=== PATIENT | male | born 1940 | race Two or more races ===

== ENCOUNTER 2017-08-24 23:45 | Inpatient (IN) | payer OTHER ==
[~2017-08-24] VITALS: Ht 157.5 cm; Wt 65.8 kg
[2017-08-25] MEDS ORDERED: Sodium Chloride 500ML 500 ML IV ONE (00:06)
[2017-08-25 00:43] LABS: HEMATOCRIT 34.4 % (42.0-52.0); HEMOGLOBIN 11.5 G/DL (14.2-18.0); MEAN CORPUSCULAR VOLUME 85 FL (80-99); PLATELET COUNT 84 K/UL (150-450); RED BLOOD COUNT 4.05 M/UL (4.70-6.10); RED CELL DISTRIBUTION WIDTH 12.3 % (11.6-14.8); WHITE BLOOD COUNT 11.5 K/UL (4.8-10.8)
--- NOTE | 2017-08-25 00:48 | Emergency Room Report ---
History of Present Illness General Chief Complaint: Abdominal Pain Source: Patient Present Illness HPI Patient presents with complaints of diffuse abdominal pain started approximately 8 o'clock this morning Patient had nausea and vomiting Denies any diarrhea Denies any chest pain or shortness of breath denies any abdominal surgeries Denies any fevers or chills Denies any dysuria or frequency Pain is a waxing and weaning Denies any change with position Allergies: Coded Allergies: No Known Allergies (Unverified , 08/24/17) Patient History Past Medical History: see triage record Pertinent Family History: none Reviewed Nursing Documentation: PMH: Agreed; PSxH: Agreed Nursing Documentation-PMH Past Medical History: No History, Except For Hx Cardiac Problems: Yes Hx Hypertension: Yes Hx Diabetes: Yes Review of Systems All Other Systems: negative except mentioned in HPI Physical Exam Vital Signs Date Time Temp Pulse Resp B/P (MAP) Pulse Ox O2 Delivery O2 Flow Rate FiO2 08/24/17 23:47 97.6 98 16 165/83 95 Room Air 97.5 Sp02 EP Interpretation: reviewed, normal General Appearance: well appearing, no apparent distress Head: normocephalic, atraumatic Eyes: bilateral eye PERRL, bilateral eye EOMI ENT: hearing grossly normal, normal pharynx, TMs + canals normal, uvula midline Neck: full range of motion, supple, no meningismus, no bony tend Respiratory: lungs clear, normal breath sounds, no rhonchi, no respiratory distress, no retraction, no accessory muscle use Cardiovascular #1: normal peripheral pulses, regular rate, rhythm, no edema, no gallop, no JVD, no murmur Gastrointestinal: normal bowel sounds, non tender - On palpation however subjectively diffusely uncomfortable, soft, no mass, no organomegaly, non- distended, no guarding, no hernia, no pulsatile mass, no rebound Genitourinary: no CVA tenderness Musculoskeletal: normal inspection Neurologic: oriented x3, responsive, client service supervisor III-XII nml as tested, motor strength/ tone normal, sensory intact Psychiatric: mood/affect normal Skin: normal color, no rash, warm/dry, palpation normal Lymphatic: normal inspection, no adenopathy Medical Decision Making Diagnostic Impression: Primary Impression: Diverticulitis ER Course With the history exam and presentation, multiple differentials considered, including but not limited to appendicitis, gastritis, cholecystitis, diverticulitis Patient's blood work reveals mildly elevated white blood cell count CT exam reveals evidence of diverticulitis Patient was provided further broad-spectrum antibiotics and requires inpatient care in serious condition Labs Test 08/25/17 00:20 White Blood Count 11.5 K/UL (4.8-10.8) Red Blood Count 4.05 M/UL (4.70-6.10) Hemoglobin 11.5 G/DL (14.2-18.0) Hematocrit 34.4 % (42.0-52.0) Mean Corpuscular Volume 85 FL (80-99) Mean Corpuscular Hemoglobin 28.5 PG (27.0-31.0) Mean Corpuscular Hemoglobin Concent 33.5 G/DL (32.0-36.0) Red Cell Distribution Width 12.3 % (11.6-14.8) Platelet Count 84 K/UL (150-450) Mean Platelet Volume 12.5 FL (6.5-10.1) Neutrophils (%) (Auto) % (45.0-75.0) Lymphocytes (%) (Auto) % (20.0-45.0) Monocytes (%) (Auto) % (1.0-10.0) Eosinophils (%) (Auto) % (0.0-3.0) Basophils (%) (Auto) % (0.0-2.0) Urine Color Yellow Urine Appearance Clear Urine pH 8 (4.5-8.0) Urine Specific [place] 1.015 (1.005-1.035) Urine Protein Negative (NEGATIVE) Urine Glucose (UA) Negative (NEGATIVE) Urine Ketones Negative (NEGATIVE) Urine Occult Blood Negative (NEGATIVE) Urine Nitrite Negative (NEGATIVE) Urine Bilirubin Negative (NEGATIVE) Urine Urobilinogen Normal MG/DL (0.0-1.0) Urine Leukocyte Esterase Negative (NEGATIVE) Sodium Level 139 MMOL/L (136-145) Potassium Level 3.8 MMOL/L (3.5-5.1) Chloride Level 100 MMOL/L (98-107) Carbon Dioxide Level 27 MMOL/L (21-32) Anion Gap 12 mmol/L (5-15) Blood Urea Nitrogen 20 mg/dL (7-18) Creatinine 1.1 MG/DL (0.55-1.30) Estimat Glomerular Filtration Rate mL/min (>60) Glucose Level 195 MG/DL (74-106) Calcium Level 9.8 MG/DL (8.5-10.1) Total Bilirubin 0.4 MG/DL (0.2-1.0) Aspartate Amino Transf (AST/SGOT) 21 U/L (15-37) Alanine Aminotransferase (ALT/SGPT) 22 U/L (12-78) Alkaline Phosphatase 77 U/L (46-116) Total Creatine Kinase 60 U/L (26-308) Creatine Kinase MB 0.7 NG/ML (0.0-3.6) Creatine Kinase MB Relative Index 1.1 Troponin I 0.000 ng/mL (0.000-0.056) Total Protein 8.4 G/DL (6.4-8.2) Albumin 4.1 G/DL (3.4-5.0) Globulin 4.3 g/dL Albumin/Globulin Ratio 1.0 (1.0-2.7) Lipase 87 U/L (73-393) Rhythm Strip Diag. Results EP Interpretation: yes Rate: 88 Rhythm: NSR, no PVC's, no ectopy Chest X-Ray Diagnostic Results Chest X-Ray Diagnostic Results : Chest X-Ray Ordered: Yes # of Views/Limited/Complete: 1 View Indication: Chest Pain EP Interpretation: Yes Interpretation: no consolidation, no effusion, no pneumothorax Impression: No acute disease Electronically Signed by: Chai Mckeon DO CT/MRI/US Diagnostic Results CT/MRI/US Diagnostic Results : Impression CTAbdomen pelvis: Findings consistent with diverticulitis refer to report for full specific Last Vital Signs Date Time Temp Pulse Resp B/P (MAP) Pulse Ox O2 Delivery O2 Flow Rate FiO2 08/24/17 23:47 97.6 98 16 165/83 95 Room Air 97.5 Status: improved Disposition: ADMITTED INPATIENT Condition: Serious Scripts Unable to Obtain Active Prescriptions or Reported Meds Referrals: [facility],REFERRING (PCP) Chai Mckeon DO August 25, 2017 00:48
[2017-08-25 00:49] LABS: APPEARANCE,URINE CLEAR; BILIRUBIN, URINE NEGATIVE (NEGATIVE); GLUCOSE, URINE (UA) NEGATIVE (NEGATIVE); KETONES,URINE NEGATIVE (NEGATIVE); LEUKOCYTE ESTERASE ,URINE NEGATIVE (NEGATIVE); NITRITE,URINE NEGATIVE (NEGATIVE); PH,URINE 8 (4.5-8.0); PROTEIN,URINE NEGATIVE (NEGATIVE); UROBILINOGEN,URINE NORMAL MG/DL (0.0-1.0)
[2017-08-25 00:50] LABS: COLOR,URINE YELLOW
[2017-08-25 00:55] LABS: ANION GAP 12 mmol/L (5-15); BLOOD UREA NITROGEN 20 mg/dL (7-18); CALCIUM 9.8 MG/DL (8.5-10.1); CARBON DIOXIDE 27 MMOL/L (21-32); CHLORIDE 100 MMOL/L (98-107); CREATININE 1.1 MG/DL (0.55-1.30); POTASSIUM 3.8 MMOL/L (3.5-5.1); SODIUM 139 MMOL/L (136-145)
[2017-08-25 01:08] VITALS: BP 148/87
[2017-08-25 01:17] LABS: ALANINE AMINOTRANSFERASE 22 U/L (12-78); ALBUMIN 4.1 G/DL (3.4-5.0); ALKALINE PHOSPHATASE 77 U/L (46-116); ASPARTATE AMINO TRANSFERASE 21 U/L (15-37); BILIRUBIN,TOTAL 0.4 MG/DL (0.2-1.0); CKMB 0.7 NG/ML (0.0-3.6); CREATINE KINASE 60 U/L (26-308)
[2017-08-25] MEDS ORDERED: Morphine Sulfate 4mg/ml Inj IVP ONE (01:45)
[2017-08-25 02:15] VITALS: BP 138/55
[2017-08-25 05:00] VITALS: BP 130/73
[2017-08-25] MEDS ORDERED: Morphine Sulfate 4mg/ml Inj IVP PRN (05:15)
[2017-08-25] MEDS ORDERED: D5 1/2NS 1,000 ML IV SCH (05:15)
[2017-08-25] MEDS ORDERED: Promethazine HCl 12.5 MG in NS 55 ML IV PRN (07:15)
[2017-08-25 08:32] VITALS: BP 107/67
--- NOTE | 2017-08-25 08:48 | Diagnostic Imaging Report ---
Indication: Abdominal pain Technique: Continuous helical transaxial imaging of the abdomen and pelvis was obtained from the lung bases to the pubic symphysis. No intravenous contrast was administered. Coronal 2-D reformats were also obtained. Automatic Exposure Control was utilized. Total Dose length Product (DLP): 740.[address] Dose Index Volume (CTDIvol): 14.12 mGy Comparison: none Findings: There is mild basilar atelectasis. Small hiatal hernia noted. Pacemaker is present. Gallstones are noted. Diverticula demonstrated throughout the colon. The appendix is normal. There is thickening of the wall the urinary bladder. In the lower part of the descending: There is a small amount of soft tissue stranding involving the pericolonic fat. Findings likely due to acute diverticulitis. Correlate clinically. There is no abscess. This arterial calcifications are present. There is a suggestion of a small central left ovarian cyst. Compression fracture deformity of the L4 vertebra noted. Anterolisthesis of L5 on S1 demonstrated. 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 IMPRESSION: Acute diverticulitis suspected involving the distal descending colon. No abscess. Cholelithiasis. Normal appendix Thickened bladder wall. Suspect cystitis. Correlate clinically. L5 spondylolysis. Spondylolisthesis grade 1 L5 on S1. Other incidental findings as above. [facility] has communicated the preliminary results to the Emergency Department. Their findings are largely concordant with this report. The CT scanner at [facility] is accredited by the [employer] and the scans are performed using dose optimization techniques as appropriate to a performed exam including Automatic Exposure control.
[2017-08-25] MEDS ORDERED: Promethazine HCl 25 MG in NS 55 ML IV PRN (09:00)
[2017-08-25] MEDS ORDERED: Nitroglycerin Subl 0.4mg tab SL PRN (09:00)
[2017-08-25] MEDS ORDERED: Metoclopramide 10mg/2ml Inj IVP PRN (09:00)
[2017-08-25] MEDS ORDERED: LORazepam Inj 2mg/ml 1ml IV PRN (09:00)
[2017-08-25] MEDS ORDERED: Mylanta II UD 30ml ORAL PRN (09:00)
[2017-08-25] MEDS ORDERED: Heparin 5000 units/ml inj SUBQ SCH (09:00)
--- NOTE | 2017-08-25 09:12 | GI Initial Consult Note ---
History of Present Illness General Date patient seen: August 25, 2017 Time patient seen: 11:00 Reason for Hospitalization: Abdominal Pain Referring physician: OSMIN JAMES Reason for Consultation: DIVERTICULITIS Present Illness HPI Patient presents with complaints of diffuse abdominal pain started approximately 8 o'clock this morning Patient had nausea and vomiting Denies any diarrhea Denies any chest pain or shortness of breath denies any abdominal surgeries Denies any fevers or chills Denies any dysuria or frequency Pain is a waxing and weaning Denies any change with position GI consulted for diverticulitis as seen on recent CT. Pt seen, awake A&Ox4 NAD denies any abdominal pain at this time. U/S tech by beside, preliminary report of cholelithiasis. Patient presents today with mild leukocytosis and anemia. Denies any unintentional weight loss or changes in dietary habits. Denies any N/V/D at this time. Unknown history of endoscopy / colonoscopy. Home Meds Unable to Obtain Active Prescriptions or Reported Meds Med list reviewed/reconciled: Yes Allergies: Coded Allergies: No Known Allergies (Unverified , 08/24/17) Patient History History Provided By: Patient, Medical Record PMH Narrative Past Medical History: see triage record Pertinent Family History: none Reviewed Nursing Documentation: PMH: Agreed; PSxH: Agreed Nursing Documentation-PMH Past Medical History: No History, Except For Hx Cardiac Problems: Yes Hx Hypertension: Yes Hx Diabetes: Yes Social History: Denies: smoking, alcohol use, drug use, other Review of Systems All Other Systems: negative except mentioned in HPI Physical Exam Vital Signs Date Time Temp Pulse Resp B/P (MAP) Pulse Ox O2 Delivery O2 Flow Rate FiO2 08/24/17 23:47 97.6 98 16 165/83 95 Room Air 97.5 Sp02 EP Interpretation: reviewed, normal Labs Laboratory Tests Test 08/25/17 00:20 White Blood Count 11.5 K/UL (4.8-10.8) H Red Blood Count 4.05 M/UL (4.70-6.10) L Hemoglobin 11.5 G/DL (14.2-18.0) L Hematocrit 34.4 % (42.0-52.0) L Mean Corpuscular Volume 85 FL (80-99) Mean Corpuscular Hemoglobin 28.5 PG (27.0-31.0) Mean Corpuscular Hemoglobin Concent 33.5 G/DL (32.0-36.0) Red Cell Distribution Width 12.3 % (11.6-14.8) Platelet Count 84 K/UL (150-450) L Mean Platelet Volume 12.5 FL (6.5-10.1) H Neutrophils (%) (Auto) % (45.0-75.0) Lymphocytes (%) (Auto) % (20.0-45.0) Monocytes (%) (Auto) % (1.0-10.0) Eosinophils (%) (Auto) % (0.0-3.0) Basophils (%) (Auto) % (0.0-2.0) Urine Color Yellow Urine Appearance Clear Urine pH 8 (4.5-8.0) Urine Specific [place] 1.015 (1.005-1.035) Urine Protein Negative (NEGATIVE) Urine Glucose (UA) Negative (NEGATIVE) Urine Ketones Negative (NEGATIVE) Urine Occult Blood Negative (NEGATIVE) Urine Nitrite Negative (NEGATIVE) Urine Bilirubin Negative (NEGATIVE) Urine Urobilinogen Normal MG/DL (0.0-1.0) Urine Leukocyte Esterase Negative (NEGATIVE) Sodium Level 139 MMOL/L (136-145) Potassium Level 3.8 MMOL/L (3.5-5.1) Chloride Level 100 MMOL/L (98-107) Carbon Dioxide Level 27 MMOL/L (21-32) Anion Gap 12 mmol/L (5-15) Blood Urea Nitrogen 20 mg/dL (7-18) H Creatinine 1.1 MG/DL (0.55-1.30) Estimat Glomerular Filtration Rate mL/min (>60) Glucose Level 195 MG/DL (74-106) H Calcium Level 9.8 MG/DL (8.5-10.1) Total Bilirubin 0.4 MG/DL (0.2-1.0) Aspartate Amino Transf (AST/SGOT) 21 U/L (15-37) Alanine Aminotransferase (ALT/SGPT) 22 U/L (12-78) Alkaline Phosphatase 77 U/L (46-116) Total Creatine Kinase 60 U/L (26-308) Creatine Kinase MB 0.7 NG/ML (0.0-3.6) Creatine Kinase MB Relative Index 1.1 Troponin I 0.000 ng/mL (0.000-0.056) Total Protein 8.4 G/DL (6.4-8.2) H Albumin 4.1 G/DL (3.4-5.0) Globulin 4.3 g/dL Albumin/Globulin Ratio 1.0 (1.0-2.7) Lipase 87 U/L (73-393) General Appearance: well appearing, no apparent distress, alert Head: normocephalic EENT: PERRL/EOMI, normal ENT inspection Neck: supple Respiratory: normal breath sounds, no respiratory distress Cardiovascular: normal rate Gastrointestinal: normal inspection, non tender, soft, normal bowel sounds, non -distended Rectal: deferred Genitourinary: deferred Musculoskeletal: normal inspection, back normal Neurologic: normal inspection, alert, oriented x3, responsive Psychiatric: normal inspection, judgement/insight normal, memory normal Skin: normal inspection, normal color, no rash, warm/dry, palpation normal, well hydrated Lymphatic: normal inspection, no adenopathy Current Medications Current Medications Medications (Trade) Dose Ordered Sig/Parth Route PRN Reason Start Time Stop Time Status Last Admin Dose Admin Acetaminophen (Tylenol) 650 mg Q4H PRN ORAL fever 08/25/17 09:00 09/24/17 08:59 Al Hydroxide/Mg Hydroxide (Mylanta II) 30 ml Q6H PRN ORAL dyspepsia 08/25/17 09:00 09/24/17 08:59 Dextrose (Dextrose 50%) STAT PRN IV Hypoglycemia 08/25/17 07:15 09/24/17 07:14 Dextrose (Dextrose 50%) STAT PRN IV Hypoglycemia 08/25/17 08:45 09/24/17 08:44 Dextrose/Sodium Chloride 1,000 ml @ 75 mls/hr [id number] IV 08/25/17 09:00 09/24/17 08:59 Diphenhydramine HCl (Benadryl) 25 mg Q6H PRN ORAL Itching/Pruritis 08/25/17 09:00 09/24/17 08:59 Heparin Sodium (Porcine) (Heparin 5000 units/ml) 5,000 units EVERY 12 HOURS SUBQ 08/25/17 09:00 09/24/17 08:59 UNV Lorazepam (Ativan 2mg/ml 1ml) 1 mg Q4H PRN IV agitation 08/25/17 09:00 09/01/17 08:59 Metoclopramide HCl (Reglan) 10 mg Q6H PRN IVP servere nausea 08/25/17 09:00 09/24/17 08:59 Morphine Sulfate (Morphine Sulfate) 4 mg Q4H PRN IVP For Pain 08/25/17 05:15 09/01/17 05:14 08/25/17 06:34 Nitroglycerin (Ntg) 0.4 mg Q5M X 3 DOSES PRN SL Prn Chest Pain 08/25/17 09:00 09/24/17 08:59 Ondansetron HCl (Zofran) 4 mg Q6H PRN IVP Nausea & Vomiting 08/25/17 09:00 09/24/17 08:59 Pantoprazole (Protonix) 40 mg DAILY IV 08/25/17 09:00 09/24/17 08:59 Polyethylene Glycol (Miralax) 17 gm HSPRN PRN ORAL Constipation 08/25/17 21:00 09/24/17 20:59 Promethazine HCl 12.5 mg/Sodium Chloride 55.5 ml @ 110 mls/hr Q6H PRN IV Refractory N/V 08/25/17 07:15 09/24/17 07:14 UNV Promethazine HCl 25 mg/Sodium Chloride 56 ml @ 110 mls/hr Q6H PRN IV Refractory N/V 08/25/17 09:00 09/24/17 08:59 Temazepam (Restoril) 15 mg HSPRN PRN ORAL Insomnia 08/25/17 21:00 09/01/17 20:59 GI: Plan Problems: (1) Diverticulitis (2) Abdominal pain Plan CT AP reviewed >> Acute diverticulitis suspected involving the distal descending colon. No abscess. CLD, advance diet as tolerated. anemia work up IV hydration IV Antibiotics, Cipro + Flagyl >> transition to PO x 10 days after dc prn transfusions ppi pain mgmt fu labs pt will require colonoscopy x 2 months after dc date. Discussed with Dr. Bell. Thank you for this patient referral, we will follow. The patient was seen and examined at bedside and all new and available data was reviewed in the patients chart. I agree with the above findings, impression and plan. (Patient seen earlier today. Signature stamp does not reflect patient encounter time.). - MD Selena [facility] [employer] August 25, 2017 09:12
[2017-08-25] MEDS: Pantoprazole Inj IV SCH (09:14)
[2017-08-25] MEDS: D5 1/2NS 1,000 ML IV SCH ×2 (09:14→21:52)
--- NOTE | 2017-08-25 10:39 | Diagnostic Imaging Report ---
Indication: Chest pain Comparison: None A single view chest radiograph was obtained. Findings: Cardiomediastinal appearance is within normal limits for age. There is a pacemaker present on the left side. Minimal calcification of the aortic arch noted. Pulmonary vascularity is appropriate. The diaphragmatic contour is smooth and costophrenic angles are sharp. No pleural effusions are identified. The bones are unremarkable. Impression: No acute findings
--- NOTE | 2017-08-25 11:38 | Diagnostic Imaging Report ---
Indication:Abdominal pain Technique: Grayscale and duplex Doppler imaging of the abdomen performed. Comparison: None Findings: The liver, demonstrated part of the pancreas, aorta and IVC, spleen appear unremarkable. Multiple gallstones are present. Sonographic Frances's is negative per technologist. There are multiple bilateral renal cysts of varying size. The largest single cyst is about 2 cm and the left kidney. There is no biliary ductal dilatation identified. Doppler evaluation of the main portal vein shows patency. There is no ascites. No hydronephrosis seen. Impression: Cholelithiasis. Bilateral renal cysts
[2017-08-25 11:56] VITALS: BP 110/65
--- NOTE | 2017-08-25 15:39 | Consultation ---
History of Present Illness General Chief Complaint: Abdominal Pain Referring physician: OSMIN JAMES Reason for Consultation: DIVERTICULITIS Present Illness Allergies: Coded Allergies: No Known Allergies (Unverified , 08/24/17) Medication History Unable to Obtain Active Prescriptions or Reported Meds Patient History Healthcare decision maker Resuscitation status Full Code Advanced Directive on File Physical Exam Last 24 Hour Vital Signs Date Time Temp Pulse Resp B/P (MAP) Pulse Ox O2 Delivery O2 Flow Rate FiO2 08/25/17 11:56 98.0 86 20 110/65 97 98.0 08/25/17 08:32 Room Air 08/25/17 08:32 98.2 90 20 107/67 97 98.2 08/25/17 05:00 98.1 65 20 130/73 95 Room Air 98.1 08/25/17 02:25 97.2 94 19 138/55 97 Room Air 207.0 08/25/17 02:24 97.2 08/25/17 02:15 94 19 138/55 97 Room Air 08/25/17 01:54 97.2 08/25/17 01:26 187/79 08/25/17 01:08 97.2 98 22 148/87 98 Room Air 97.2 08/24/17 23:47 97.6 98 16 165/83 95 Room Air 97.5 Intake and Output 08/24/17 08/25/17 19:00 07:00 Intake Total 600 ml Output Total 40 ml Balance 560 ml IV Total 600 ml Output Urine Total 40 ml # Voids 4 Laboratory Tests Test 08/25/17 00:20 White Blood Count 11.5 K/UL (4.8-10.8) H Red Blood Count 4.05 M/UL (4.70-6.10) L Hemoglobin 11.5 G/DL (14.2-18.0) L Hematocrit 34.4 % (42.0-52.0) L Mean Corpuscular Volume 85 FL (80-99) Mean Corpuscular Hemoglobin 28.5 PG (27.0-31.0) Mean Corpuscular Hemoglobin Concent 33.5 G/DL (32.0-36.0) Red Cell Distribution Width 12.3 % (11.6-14.8) Platelet Count 84 K/UL (150-450) L Mean Platelet Volume 12.5 FL (6.5-10.1) H Neutrophils (%) (Auto) % (45.0-75.0) Lymphocytes (%) (Auto) % (20.0-45.0) Monocytes (%) (Auto) % (1.0-10.0) Eosinophils (%) (Auto) % (0.0-3.0) Basophils (%) (Auto) % (0.0-2.0) Urine Color Yellow Urine Appearance Clear Urine pH 8 (4.5-8.0) Urine Specific [place] 1.015 (1.005-1.035) Urine Protein Negative (NEGATIVE) Urine Glucose (UA) Negative (NEGATIVE) Urine Ketones Negative (NEGATIVE) Urine Occult Blood Negative (NEGATIVE) Urine Nitrite Negative (NEGATIVE) Urine Bilirubin Negative (NEGATIVE) Urine Urobilinogen Normal MG/DL (0.0-1.0) Urine Leukocyte Esterase Negative (NEGATIVE) Sodium Level 139 MMOL/L (136-145) Potassium Level 3.8 MMOL/L (3.5-5.1) Chloride Level 100 MMOL/L (98-107) Carbon Dioxide Level 27 MMOL/L (21-32) Anion Gap 12 mmol/L (5-15) Blood Urea Nitrogen 20 mg/dL (7-18) H Creatinine 1.1 MG/DL (0.55-1.30) Estimat Glomerular Filtration Rate mL/min (>60) Glucose Level 195 MG/DL (74-106) H Calcium Level 9.8 MG/DL (8.5-10.1) Total Bilirubin 0.4 MG/DL (0.2-1.0) Aspartate Amino Transf (AST/SGOT) 21 U/L (15-37) Alanine Aminotransferase (ALT/SGPT) 22 U/L (12-78) Alkaline Phosphatase 77 U/L (46-116) Total Creatine Kinase 60 U/L (26-308) Creatine Kinase MB 0.7 NG/ML (0.0-3.6) Creatine Kinase MB Relative Index 1.1 Troponin I 0.000 ng/mL (0.000-0.056) Total Protein 8.4 G/DL (6.4-8.2) H Albumin 4.1 G/DL (3.4-5.0) Globulin 4.3 g/dL Albumin/Globulin Ratio 1.0 (1.0-2.7) Lipase 87 U/L (73-393) Height (Feet): 5 Height (Inches): 2.00 Weight (Pounds): 145 Medications Current Medications Medications (Trade) Dose Ordered Sig/Parth Route PRN Reason Start Time Stop Time Status Last Admin Dose Admin Acetaminophen (Tylenol) 650 mg Q4H PRN ORAL fever 08/25/17 09:00 09/24/17 08:59 Al Hydroxide/Mg Hydroxide (Mylanta II) 30 ml Q6H PRN ORAL dyspepsia 08/25/17 09:00 09/24/17 08:59 Ciprofloxacin 100 ml @ 100 mls/hr Q24HRS IV 08/25/17 10:00 09/01/17 09:59 08/25/17 11:08 Dextrose (Dextrose 50%) STAT PRN IV Hypoglycemia 08/25/17 07:15 09/24/17 07:14 Dextrose (Dextrose 50%) STAT PRN IV Hypoglycemia 08/25/17 08:45 09/24/17 08:44 Dextrose/Sodium Chloride 1,000 ml @ 75 mls/hr [id number] IV 08/25/17 09:00 09/24/17 08:59 08/25/17 09:14 Diphenhydramine HCl (Benadryl) 25 mg Q6H PRN ORAL Itching/Pruritis 08/25/17 09:00 09/24/17 08:59 Lorazepam (Ativan 2mg/ml 1ml) 1 mg Q4H PRN IV agitation 08/25/17 09:00 09/01/17 08:59 Metoclopramide HCl (Reglan) 10 mg Q6H PRN IVP servere nausea 08/25/17 09:00 09/24/17 08:59 Metronidazole 100 ml @ 100 mls/hr Q8HR IVPB 08/25/17 14:00 09/01/17 13:59 08/25/17 13:53 Morphine Sulfate (Morphine Sulfate) 4 mg Q4H PRN IVP For Pain 08/25/17 05:15 09/01/17 05:14 08/25/17 06:34 Nitroglycerin (Ntg) 0.4 mg Q5M X 3 DOSES PRN SL Prn Chest Pain 08/25/17 09:00 09/24/17 08:59 Ondansetron HCl (Zofran) 4 mg Q6H PRN IVP Nausea & Vomiting 08/25/17 09:00 09/24/17 08:59 Pantoprazole (Protonix) 40 mg DAILY IV 08/25/17 09:00 09/24/17 08:59 08/25/17 09:14 Polyethylene Glycol (Miralax) 17 gm HSPRN PRN ORAL Constipation 08/25/17 21:00 09/24/17 20:59 Promethazine HCl 25 mg/Sodium Chloride 56 ml @ 110 mls/hr Q6H PRN IV Refractory N/V 08/25/17 09:00 09/24/17 08:59 Temazepam (Restoril) 15 mg HSPRN PRN ORAL Insomnia 08/25/17 21:00 09/01/17 20:59 Westley Gottlieb MD August 25, 2017 15:39
[2017-08-25 16:02] VITALS: BP 147/76
[2017-08-25 17:09] LABS: FERRITIN 31 NG/ML (8-388); LACTATE DEHYDROGENASE 159 U/L (81-234)
[2017-08-25 17:30] LABS: % IRON SATURATION 16 % (15-50); IRON 56 ug/dL (50-175); TOTAL IRON BINDING CAPACITY 342 ug/dL (250-450)
--- NOTE | 2017-08-25 18:21 | Consultation ---
History of Present Illness General Date patient seen: August 25, 2017 Chief Complaint: Abdominal Pain Referring physician: OSMIN JAMES Reason for Consultation: DIVERTICULITIS Present Illness HPI 77 y/o M with hx of HTN, DM presents to ED on 08/25 with 1day of diffuse abd pain, nausea and vomiting. CT Abd showed diverticulitis. +Mild leukocytosis and anemia. Deneis diarrhea, CP, SOB, f/c, urinary symptoms. Afebrile, mild leukocytosis 11.5 Allergies: Coded Allergies: No Known Allergies (Unverified , 08/24/17) Medication History Unable to Obtain Active Prescriptions or Reported Meds Patient History Healthcare decision maker Resuscitation status Full Code Advanced Directive on File Patient History Narrative Pmhx: as above Shx: Denies: smoking, alcohol use, drug use, other Fhx: non contributory Review of Systems All Other Systems: negative except mentioned in HPI Physical Exam Physical Exam Narrative General Appearance: well appearing, no apparent distress, alert Head: normocephalic EENT: PERRL/EOMI, normal ENT inspection Neck: supple Respiratory: normal breath sounds, no respiratory distress Cardiovascular: normal rate Gastrointestinal: normal inspection, non tender, soft, normal bowel sounds, non -distended Neurologic: normal inspection, alert, oriented x3, responsive Skin: normal inspection, normal color, no rash, warm/dry, palpation normal, well hydrated Last 24 Hour Vital Signs Date Time Temp Pulse Resp B/P (MAP) Pulse Ox O2 Delivery O2 Flow Rate FiO2 08/25/17 16:02 97.5 77 20 147/76 97 97.5 08/25/17 11:56 98.0 86 20 110/65 97 98.0 08/25/17 08:32 Room Air 08/25/17 08:32 98.2 90 20 107/67 97 98.2 08/25/17 05:00 98.1 65 20 130/73 95 Room Air 98.1 08/25/17 02:25 97.2 94 19 138/55 97 Room Air 207.0 08/25/17 02:24 97.2 08/25/17 02:15 94 19 138/55 97 Room Air 08/25/17 01:54 97.2 08/25/17 01:26 187/79 08/25/17 01:08 97.2 98 22 148/87 98 Room Air 97.2 08/24/17 23:47 97.6 98 16 165/83 95 Room Air 97.5 Intake and Output 08/24/17 08/25/17 19:00 07:00 Intake Total 600 ml Output Total 40 ml Balance 560 ml IV Total 600 ml Output Urine Total 40 ml # Voids 4 Laboratory Tests Test 08/25/17 00:20 08/25/17 15:50 White Blood Count 11.5 K/UL (4.8-10.8) H Red Blood Count 4.05 M/UL (4.70-6.10) L Hemoglobin 11.5 G/DL (14.2-18.0) L Hematocrit 34.4 % (42.0-52.0) L Mean Corpuscular Volume 85 FL (80-99) Mean Corpuscular Hemoglobin 28.5 PG (27.0-31.0) Mean Corpuscular Hemoglobin Concent 33.5 G/DL (32.0-36.0) Red Cell Distribution Width 12.3 % (11.6-14.8) Platelet Count 84 K/UL (150-450) L Mean Platelet Volume 12.5 FL (6.5-10.1) H Neutrophils (%) (Auto) % (45.0-75.0) Lymphocytes (%) (Auto) % (20.0-45.0) Monocytes (%) (Auto) % (1.0-10.0) Eosinophils (%) (Auto) % (0.0-3.0) Basophils (%) (Auto) % (0.0-2.0) Urine Color Yellow Urine Appearance Clear Urine pH 8 (4.5-8.0) Urine Specific [place] 1.015 (1.005-1.035) Urine Protein Negative (NEGATIVE) Urine Glucose (UA) Negative (NEGATIVE) Urine Ketones Negative (NEGATIVE) Urine Occult Blood Negative (NEGATIVE) Urine Nitrite Negative (NEGATIVE) Urine Bilirubin Negative (NEGATIVE) Urine Urobilinogen Normal MG/DL (0.0-1.0) Urine Leukocyte Esterase Negative (NEGATIVE) Sodium Level 139 MMOL/L (136-145) Potassium Level 3.8 MMOL/L (3.5-5.1) Chloride Level 100 MMOL/L (98-107) Carbon Dioxide Level 27 MMOL/L (21-32) Anion Gap 12 mmol/L (5-15) Blood Urea Nitrogen 20 mg/dL (7-18) H Creatinine 1.1 MG/DL (0.55-1.30) Estimat Glomerular Filtration Rate mL/min (>60) Glucose Level 195 MG/DL (74-106) H Calcium Level 9.8 MG/DL (8.5-10.1) Total Bilirubin 0.4 MG/DL (0.2-1.0) Aspartate Amino Transf (AST/SGOT) 21 U/L (15-37) Alanine Aminotransferase (ALT/SGPT) 22 U/L (12-78) Alkaline Phosphatase 77 U/L (46-116) Total Creatine Kinase 60 U/L (26-308) Creatine Kinase MB 0.7 NG/ML (0.0-3.6) Creatine Kinase MB Relative Index 1.1 Troponin I 0.000 ng/mL (0.000-0.056) Total Protein 8.4 G/DL (6.4-8.2) H Albumin 4.1 G/DL (3.4-5.0) Globulin 4.3 g/dL Albumin/Globulin Ratio 1.0 (1.0-2.7) Lipase 87 U/L (73-393) Reticulocyte Count 0.7 % (0.0-2.0) Haptoglobin Pending Fibrinogen Pending Iron Level 56 ug/dL (50-175) Total Iron Binding Capacity 342 ug/dL (250-450) Percent Iron Saturation 16 % (15-50) Unsaturated Iron Binding 286 ug/dL (112-346) Ferritin 31 NG/ML (8-388) Lactate Dehydrogenase 159 U/L (81-234) Vitamin B12 Level 606 PG/ML (193-986) Folate 35.1 NG/ML (8.6-58.9) Homocystine Pending Hepatitis A IgM Antibody Pending Hepatitis B Surface Antigen Pending Hepatitis B Core IgM Antibody Pending Hepatitis C Antibody Pending HIV (1&2) Antibody Rapid Negative (NEGATIVE) Height (Feet): 5 Height (Inches): 2.00 Weight (Pounds): 145 Medications Current Medications Medications (Trade) Dose Ordered Sig/Parth Route PRN Reason Start Time Stop Time Status Last Admin Dose Admin Acetaminophen (Tylenol) 650 mg Q4H PRN ORAL fever 08/25/17 09:00 09/24/17 08:59 Al Hydroxide/Mg Hydroxide (Mylanta II) 30 ml Q6H PRN ORAL dyspepsia 08/25/17 09:00 09/24/17 08:59 Ciprofloxacin 100 ml @ 100 mls/hr Q24HRS IV 08/25/17 10:00 09/01/17 09:59 08/25/17 11:08 Dextrose (Dextrose 50%) STAT PRN IV Hypoglycemia 08/25/17 07:15 09/24/17 07:14 Dextrose (Dextrose 50%) STAT PRN IV Hypoglycemia 08/25/17 08:45 09/24/17 08:44 Dextrose/Sodium Chloride 1,000 ml @ 75 mls/hr [id number] IV 08/25/17 09:00 09/24/17 08:59 08/25/17 09:14 Diphenhydramine HCl (Benadryl) 25 mg Q6H PRN ORAL Itching/Pruritis 08/25/17 09:00 09/24/17 08:59 Lorazepam (Ativan 2mg/ml 1ml) 1 mg Q4H PRN IV agitation 08/25/17 09:00 09/01/17 08:59 Metoclopramide HCl (Reglan) 10 mg Q6H PRN IVP servere nausea 08/25/17 09:00 09/24/17 08:59 Metronidazole 100 ml @ 100 mls/hr Q8HR IVPB 08/25/17 14:00 09/01/17 13:59 08/25/17 13:53 Morphine Sulfate (Morphine Sulfate) 4 mg Q4H PRN IVP For Pain 08/25/17 05:15 09/01/17 05:14 08/25/17 06:34 Nitroglycerin (Ntg) 0.4 mg Q5M X 3 DOSES PRN SL Prn Chest Pain 08/25/17 09:00 09/24/17 08:59 Ondansetron HCl (Zofran) 4 mg Q6H PRN IVP Nausea & Vomiting 08/25/17 09:00 09/24/17 08:59 Pantoprazole (Protonix) 40 mg DAILY IV 08/25/17 09:00 09/24/17 08:59 08/25/17 09:14 Polyethylene Glycol (Miralax) 17 gm HSPRN PRN ORAL Constipation 08/25/17 21:00 09/24/17 20:59 Promethazine HCl 25 mg/Sodium Chloride 56 ml @ 110 mls/hr Q6H PRN IV Refractory N/V 08/25/17 09:00 09/24/17 08:59 Temazepam (Restoril) 15 mg HSPRN PRN ORAL Insomnia 08/25/17 21:00 09/01/17 20:59 Assessment/Plan Assessment/Plan Abx: Cipro 08/25- Flagyl 08/25- Levaquin x1 08/25 Assessment: Acute diverticulitis -Abd US: Cholelithiasis. Bilateral renal cysts -CT abd/p: Acute diverticulitis suspected involving the distal descending colon. No abscess. Cholelithiasis. Normal appendix. Thickened bladder wall. Suspect cystitis. Correlate clinically. L5 spondylolysis. Spondylolisthesis grade 1 L5 on S1. Mild leukocytosis- 2ry to above -afebrile -u/a neg -CXR: no acute findings HIV ab neg HTN DM2 Plan: -Switch IV Cipro #1 to Ceftriaxone and continue Flagyl #1 (switch to PO) for acute diverticulitis -f/u cx -Monitor CBC/BMP, temperatures Thank you for this consultation. Will continue to follow along with you. Discussed with Katiuska Burroughs M.D. August 25, 2017 18:21
[2017-08-25] MEDS ORDERED: Miralax 17gm pkt ORAL PRN (21:00)
[2017-08-25] MEDS: metroNIDAZOLE 500mg tab ORAL SCH (21:48)
[2017-08-25] MEDS ORDERED: metroNIDAZOLE 500mg tab ORAL SCH (22:00)
[2017-08-26 00:16] VITALS: BP 140/72
--- NOTE | 2017-08-26 00:31 | History and Physical Report ---
DATE OF ADMISSION: 08/25/2017 TIME: At 1 p.m. CONSULTANTS: 1. Marvin Bell M.D. 2. Westley Gottlieb M.D. CHIEF COMPLAINT: Abdominal pain for five hours, diverticulitis. BRIEF HISTORY: This is a 77-year-old male, who lives at home, presents with five hours of abdominal pain. No nausea or vomiting. Pain increased. The patient came to [place], diagnosed with diverticulitis, and admitted to medical floor for further treatment. Currently, tolerating clear liquid diet, slight abdominal pain, no complaint. PAST MEDICAL HISTORY: Hypertension and diabetes. PAST SURGICAL HISTORY: None. MEDICATIONS: MiraLAX, Restoril, metronidazole, Cipro, Tylenol, Zofran, Benadryl, nitroglycerin, and Mylanta. ALLERGIES: Denies. SOCIAL HISTORY: No smoking. No alcohol. No intravenous drug use. FAMILY HISTORY: Noncontributory. REVIEW OF SYSTEMS: No chest pain. No shortness of breath. No nausea, vomiting, or diarrhea. PHYSICAL EXAMINATION: GENERAL: Calm in bed, oriented x3, in no acute distress. VITAL SIGNS: Temperature is 98, pulse 86, respirations 20, and blood pressure 110/65. CARDIOVASCULAR: No murmurs. LUNGS: Distant and clear. ABDOMEN: Bowel sounds positive. Nontender and nondistended. Soft. No guarding. No rigidity. EXTREMITIES: No cyanosis or edema. NEUROLOGIC: The patient moves all extremities. Slightly weak. LABORATORY AND DIAGNOSTIC DATA: White count 11.5, hemoglobin and hematocrit are 11.5 and 34, and platelets are 84,000. BMP shows BUN 20 and glucose 195. Urinalysis is negative. ASSESSMENT: 1. Abdominal pain. 2. Diverticulitis. 3. Hypertension. 4. Diabetes. 5. Anemia. 6. Thrombocytopenia. PLAN: 1. Continue premeds. 2. Advance diet as tolerated. 3. Antibiotics per Infectious Disease. 4. Blood pressure, blood sugar, and pain control. 5. Dietary followup. 6. Dr. Bell, Dr. Gottlieb, Dr. Appiah, and Dr. Duke to consult. 7. We will continue to follow the patient. Artem Leavitt D.O. DR: REESE JOB#: [id number] CC:
[2017-08-26 04:00] VITALS: BP 142/77
[2017-08-26] MEDS ORDERED: JANUVIA100 MG ORAL (05:12)
[2017-08-26] MEDS ORDERED: FERROUS SULFAT325 MG ORAL (05:12)
[2017-08-26] MEDS ORDERED: LANSOPRAZOLE30 MG ORAL (05:12)
[2017-08-26] MEDS ORDERED: MAGNESIUM400 M2 PO (05:12)
[2017-08-26] MEDS ORDERED: FOLIC ACID1 MG ORAL (05:12)
[2017-08-26] MEDS ORDERED: PENTOXIFYLLINE400 M1 PO (05:12)
[2017-08-26] MEDS ORDERED: SIMVASTATIN20 MG ORAL (05:12)
[2017-08-26] MEDS ORDERED: HYDROCHLOROTH12.5 M2 ORAL (05:12)
[2017-08-26] MEDS ORDERED: NITROSTAT0.4 M1 SL (05:12)
[2017-08-26] MEDS ORDERED: METFORMIN HCL1000 M1 ORAL (05:12)
[2017-08-26] MEDS: metroNIDAZOLE 500mg tab ORAL SCH ×4 (06:19→22:13)
[2017-08-26 07:26] LABS: BASOPHILS % (AUTO) 0.9 % (0.0-2.0); EOSINOPHILS % (AUTO) 4.2 % (0.0-3.0); HEMATOCRIT 33.2 % (42.0-52.0); LYMPHOCYTES % (AUTO) 28.6 % (20.0-45.0); MEAN CORPUSCULAR VOLUME 87 FL (80-99); MONOCYTES % (AUTO) 8.2 % (1.0-10.0); PLATELET COUNT 124 K/UL (150-450); RED BLOOD COUNT 3.82 M/UL (4.70-6.10); RED CELL DISTRIBUTION WIDTH 12.9 % (11.6-14.8); WHITE BLOOD COUNT 4.8 K/UL (4.8-10.8)
[2017-08-26 07:44] LABS: ALANINE AMINOTRANSFERASE 24 U/L (12-78); ALBUMIN 3.4 G/DL (3.4-5.0); ALBUMIN/GLOBULIN RATIO 0.8 (1.0-2.7); ALKALINE PHOSPHATASE 63 U/L (46-116); AMYLASE 47 U/L (25-115); ANION GAP 5 mmol/L (5-15); ASPARTATE AMINO TRANSFERASE 27 U/L (15-37); BILIRUBIN,TOTAL 0.5 MG/DL (0.2-1.0); BLOOD UREA NITROGEN 12 mg/dL (7-18); CARBON DIOXIDE 30 MMOL/L (21-32); CHLORIDE 106 MMOL/L (98-107); CREATININE 1.1 MG/DL (0.55-1.30); POTASSIUM 3.8 MMOL/L (3.5-5.1); SODIUM 141 MMOL/L (136-145)
[2017-08-26 08:11] VITALS: BP 142/72
--- NOTE | 2017-08-26 08:30 | General Progress Note ---
Assessment/Plan Problem List: (1) HTN (hypertension) ICD Codes: I10 - Essential (primary) hypertension SNOMED: 28794276 (2) Diabetes ICD Codes: E11.9 - Type 2 diabetes mellitus without complications SNOMED: 13270740 (3) Anemia ICD Codes: D64.9 - Anemia, unspecified SNOMED: 517496778 (4) Thrombocytopenia ICD Codes: D69.6 - Thrombocytopenia, unspecified SNOMED: 245678191 (5) Diverticulitis ICD Codes: K57.92 - Diverticulitis of intestine, part unspecified, without perforation or abscess without bleeding SNOMED: 686385014 (6) Abdominal pain ICD Codes: R10.9 - Unspecified abdominal pain SNOMED: 52458825 Status: unchanged Assessment/Plan sbx per id, gi f/u pain control cbc bmp am Subjective Constitutional: Reports: weakness Allergies: Coded Allergies: No Known Allergies (Unverified , 08/24/17) All Systems: reviewed and negative except above Subjective sleepy calm Objective Last 24 Hour Vital Signs Date Time Temp Pulse Resp B/P (MAP) Pulse Ox O2 Delivery O2 Flow Rate FiO2 08/26/17 08:11 98.1 88 20 142/72 96 98.1 08/26/17 04:00 97.9 75 21 142/77 96 97.9 08/26/17 00:16 98.2 77 19 140/72 98 98.2 08/25/17 16:02 97.5 77 20 147/76 97 97.5 08/25/17 11:56 98.0 86 20 110/65 97 98.0 08/25/17 08:32 Room Air 08/25/17 08:32 98.2 90 20 107/67 97 98.2 Intake and Output 08/25/17 08/26/17 19:00 07:00 Intake Total 1555 ml 1380 ml Output Total 1600 ml 950 ml Balance -45 ml 430 ml Intake Oral 1130 ml 480 ml IV Total 425 ml 900 ml Output Urine Total 1600 ml 950 ml Laboratory Tests 08/25/17 15:50: Reticulocyte Count 0.7, Haptoglobin [Pending], Fibrinogen 387, Iron Level 56, Total Iron Binding Capacity 342, Percent Iron Saturation 16, Unsaturated Iron Binding 286, Ferritin 31, Lactate Dehydrogenase 159, Vitamin B12 Level 606, Folate 35.1, Homocystine [Pending], Hepatitis A IgM Antibody [Pending], Hepatitis B Surface Antigen [Pending], Hepatitis B Core IgM Antibody [Pending], Hepatitis C Antibody [Pending], HIV (1&2) Antibody Rapid Negative 08/26/17 05:45: White Blood Count 4.8#, Red Blood Count 3.82L, Hemoglobin 11.0L, Hematocrit 33.2L, Mean Corpuscular Volume 87, Mean Corpuscular Hemoglobin 28.7, Mean Corpuscular Hemoglobin Concent 33.1, Red Cell Distribution Width 12.9, Platelet Count 124L, Mean Platelet Volume 11.1H, Neutrophils (%) (Auto) 58.0, Lymphocytes (%) (Auto) 28.6, Monocytes (%) (Auto) 8.2, Eosinophils (%) (Auto) 4.2H, Basophils (%) (Auto) 0.9, Activated Partial Thromboplast Time [Pending], Sodium Level 141, Potassium Level 3.8, Chloride Level 106, Carbon Dioxide Level 30, Anion Gap 5, Blood Urea Nitrogen 12, Creatinine 1.1, Estimat Glomerular Filtration Rate , Glucose Level 185H, Calcium Level 9.0, Total Bilirubin 0.5, Aspartate Amino Transf (AST/SGOT) 27, Alanine Aminotransferase (ALT/SGPT) 24, Alkaline Phosphatase 63, Total Protein 7.5, Albumin 3.4, Globulin 4.1, Albumin/ Globulin Ratio 0.8L, Amylase Level 47, Lipase 75 Height (Feet): 5 Height (Inches): 2.00 Weight (Pounds): 145 General Appearance: alert EENT: normal ENT inspection Neck: normal alignment Cardiovascular: normal peripheral pulses, normal rate, regular rhythm Respiratory/Chest: chest wall non-tender, lungs clear, normal breath sounds Abdomen: normal bowel sounds, non tender, soft Extremities: normal inspection Edema: no edema noted Arm (L), no edema noted Arm (R), no edema noted Leg (L), no edema noted Leg (R), no edema noted Pedal (L), no edema noted Pedal (R), no edema noted Generalized Neurologic: motor weakness Skin: normal pigmentation, warm/dry Artem Leavitt Yunier WRIGHT August 26, 2017 08:30
[2017-08-26] MEDS: Pantoprazole Inj IV SCH (09:13)
[2017-08-26] MEDS: cefTRIAXone 1 GM in D5W 55 ML IVPB SCH (09:13)
[2017-08-26] MEDS ORDERED: Mylanta II UD 30ml ORAL PRN (11:00)
[2017-08-26] MEDS ORDERED: Morphine Sulfate 4mg/ml Inj IVP PRN (11:15)
[2017-08-26] MEDS ORDERED: Metoclopramide 10mg/2ml Inj IVP PRN (11:15)
[2017-08-26] MEDS ORDERED: LORazepam Inj 2mg/ml 1ml IV PRN (11:15)
[2017-08-26] MEDS ORDERED: Promethazine HCl 25 MG in NS 55 ML IV PRN (11:15)
[2017-08-26] MEDS ORDERED: Nitroglycerin Subl 0.4mg tab SL PRN (11:15)
[2017-08-26 11:43] VITALS: BP 146/74
[2017-08-26] MEDS: D5 1/2NS 1,000 ML IV SCH (12:15)
--- NOTE | 2017-08-26 12:42 | Infectious Diseases Prog Note ---
Assessment/Plan Assessment/Plan Assessment: Acute diverticulitis -Abd US: Cholelithiasis. Bilateral renal cysts -CT abd/p: Acute diverticulitis suspected involving the distal descending colon. No abscess. Cholelithiasis. Normal appendix. Thickened bladder wall. Suspect cystitis. Correlate clinically. L5 spondylolysis. Spondylolisthesis grade 1 L5 on S1. Mild leukocytosis- SP -afebrile -u/a neg -CXR: no acute findings HIV ab neg HTN DM2 Plan: - cont Ceftriaxone and PO Flagyl #2 / - 10 , upon DC will cont pt on oral cipro and Flagyl to complete the course for acute diverticulitis 08/25 SP IV Cipro d#1 -f/u cx -Monitor CBC/BMP, temperatures - Hep panel : P Subjective Constitutional: Denies: no symptoms, fever, chills, fatigue, anorexia, drenching sweats, other Allergies: Coded Allergies: No Known Allergies (Unverified , 08/24/17) Objective Vital Signs Last 24 Hour Vital Signs Date Time Temp Pulse Resp B/P (MAP) Pulse Ox O2 Delivery O2 Flow Rate FiO2 08/26/17 11:43 97.5 82 20 146/74 98 97.5 08/26/17 08:11 98.1 88 20 142/72 96 98.1 08/26/17 04:00 97.9 75 21 142/77 96 97.9 08/26/17 00:16 98.2 77 19 140/72 98 98.2 08/25/17 16:02 97.5 77 20 147/76 97 97.5 Height (Feet): 5 Height (Inches): 2.00 Weight (Pounds): 145 HEENT: anicteric Respiratory/Chest: no respiratory distress Cardiovascular: normal rate Abdomen: no organomegaly Laboratory Tests Test 08/25/17 15:50 08/26/17 05:45 Reticulocyte Count 0.7 % (0.0-2.0) Haptoglobin Pending Fibrinogen 387 mg/dL (200-400) Iron Level 56 ug/dL (50-175) Total Iron Binding Capacity 342 ug/dL (250-450) Percent Iron Saturation 16 % (15-50) Unsaturated Iron Binding 286 ug/dL (112-346) Ferritin 31 NG/ML (8-388) Lactate Dehydrogenase 159 U/L (81-234) Vitamin B12 Level 606 PG/ML (193-986) Folate 35.1 NG/ML (8.6-58.9) Homocystine 6.2 umol/L (0.0-15.0) Hepatitis A IgM Antibody Pending Hepatitis B Surface Antigen Pending Hepatitis B Core IgM Antibody Pending Hepatitis C Antibody Pending HIV (1&2) Antibody Rapid Negative (NEGATIVE) White Blood Count 4.8 K/UL (4.8-10.8) # Red Blood Count 3.82 M/UL (4.70-6.10) L Hemoglobin 11.0 G/DL (14.2-18.0) L Hematocrit 33.2 % (42.0-52.0) L Mean Corpuscular Volume 87 FL (80-99) Mean Corpuscular Hemoglobin 28.7 PG (27.0-31.0) Mean Corpuscular Hemoglobin Concent 33.1 G/DL (32.0-36.0) Red Cell Distribution Width 12.9 % (11.6-14.8) Platelet Count 124 K/UL (150-450) L Mean Platelet Volume 11.1 FL (6.5-10.1) H Neutrophils (%) (Auto) 58.0 % (45.0-75.0) Lymphocytes (%) (Auto) 28.6 % (20.0-45.0) Monocytes (%) (Auto) 8.2 % (1.0-10.0) Eosinophils (%) (Auto) 4.2 % (0.0-3.0) H Basophils (%) (Auto) 0.9 % (0.0-2.0) Activated Partial Thromboplast Time 25 SEC (23-33) Sodium Level 141 MMOL/L (136-145) Potassium Level 3.8 MMOL/L (3.5-5.1) Chloride Level 106 MMOL/L (98-107) Carbon Dioxide Level 30 MMOL/L (21-32) Anion Gap 5 mmol/L (5-15) Blood Urea Nitrogen 12 mg/dL (7-18) Creatinine 1.1 MG/DL (0.55-1.30) Estimat Glomerular Filtration Rate mL/min (>60) Glucose Level 185 MG/DL (74-106) H Calcium Level 9.0 MG/DL (8.5-10.1) Total Bilirubin 0.5 MG/DL (0.2-1.0) Aspartate Amino Transf (AST/SGOT) 27 U/L (15-37) Alanine Aminotransferase (ALT/SGPT) 24 U/L (12-78) Alkaline Phosphatase 63 U/L (46-116) Total Protein 7.5 G/DL (6.4-8.2) Albumin 3.4 G/DL (3.4-5.0) Globulin 4.1 g/dL Albumin/Globulin Ratio 0.8 (1.0-2.7) L Amylase Level 47 U/L (25-115) Lipase 75 U/L (73-393) Current Medications Medications (Trade) Dose Ordered Sig/Parth Route PRN Reason Start Time Stop Time Status Last Admin Dose Admin Acetaminophen (Tylenol) 650 mg Q4H PRN ORAL fever 08/26/17 11:00 09/25/17 10:59 Al Hydroxide/Mg Hydroxide (Mylanta II) 30 ml Q6H PRN ORAL dyspepsia 08/26/17 11:00 09/25/17 10:59 Ceftriaxone Sodium 1 gm/ Dextrose 55 ml @ 110 mls/hr Q24H IVPB 08/26/17 10:00 09/02/17 09:59 08/26/17 09:13 Dextrose (Dextrose 50%) STAT PRN IV Hypoglycemia 08/26/17 11:00 09/25/17 10:59 Dextrose (Dextrose 50%) STAT PRN IV Hypoglycemia 08/26/17 11:00 09/25/17 10:59 Dextrose/Sodium Chloride 1,000 ml @ 75 mls/hr [id number] IV 08/25/17 09:00 09/24/17 08:59 08/26/17 12:15 Diphenhydramine HCl (Benadryl) 25 mg Q6H PRN ORAL Itching/Pruritis 08/26/17 11:15 09/25/17 11:14 Lorazepam (Ativan 2mg/ml 1ml) 1 mg Q4H PRN IV agitation 08/26/17 11:15 09/02/17 11:14 Metoclopramide HCl (Reglan) 10 mg Q6H PRN IVP servere nausea 08/26/17 11:15 09/25/17 11:14 Metronidazole (Flagyl) 500 mg Q8HR ORAL 08/25/17 22:00 09/01/17 21:59 08/26/17 06:19 Morphine Sulfate (Morphine Sulfate) 4 mg Q4H PRN IVP For Pain 08/26/17 11:15 09/02/17 11:14 Nitroglycerin (Ntg) 0.4 mg Q5M X 3 DOSES PRN SL Prn Chest Pain 08/26/17 11:15 09/25/17 11:14 Ondansetron HCl (Zofran) 4 mg Q6H PRN IVP Nausea & Vomiting 08/26/17 11:15 09/25/17 11:14 Pantoprazole (Protonix) 40 mg DAILY IV 08/27/17 09:00 09/26/17 08:59 Polyethylene Glycol (Miralax) 17 gm HSPRN PRN ORAL Constipation 08/26/17 21:00 09/25/17 20:59 Promethazine HCl 25 mg/Sodium Chloride 56 ml @ 110 mls/hr Q6H PRN IV Refractory N/V 08/26/17 11:15 09/25/17 11:14 Temazepam (Restoril) 15 mg HSPRN PRN ORAL Insomnia 08/26/17 21:00 09/02/17 20:59 Kurt Duke MD August 26, 2017 12:42
[2017-08-26 15:32] VITALS: BP 137/80
--- NOTE | 2017-08-26 18:17 | Cardiology Progress Note ---
Assessment/Plan Assessment/Plan The patient is seen and examined, full consult note will be dictated shortly. Objective Last 24 Hour Vital Signs Date Time Temp Pulse Resp B/P (MAP) Pulse Ox O2 Delivery O2 Flow Rate FiO2 08/26/17 16:00 Room Air 08/26/17 15:32 98.1 81 20 137/80 97 98.1 08/26/17 12:00 Room Air 08/26/17 11:43 97.5 82 20 146/74 98 97.5 08/26/17 08:11 Room Air 08/26/17 08:11 98.1 88 20 142/72 96 98.1 08/26/17 04:00 97.9 75 21 142/77 96 97.9 08/26/17 00:16 98.2 77 19 140/72 98 98.2 Intake and Output 08/25/17 08/26/17 19:00 07:00 Intake Total 1555 ml 1380 ml Output Total 1600 ml 950 ml Balance -45 ml 430 ml Intake Oral 1130 ml 480 ml IV Total 425 ml 900 ml Output Urine Total 1600 ml 950 ml Laboratory Tests Test 08/26/17 05:45 White Blood Count 4.8 K/UL (4.8-10.8) # Red Blood Count 3.82 M/UL (4.70-6.10) L Hemoglobin 11.0 G/DL (14.2-18.0) L Hematocrit 33.2 % (42.0-52.0) L Mean Corpuscular Volume 87 FL (80-99) Mean Corpuscular Hemoglobin 28.7 PG (27.0-31.0) Mean Corpuscular Hemoglobin Concent 33.1 G/DL (32.0-36.0) Red Cell Distribution Width 12.9 % (11.6-14.8) Platelet Count 124 K/UL (150-450) L Mean Platelet Volume 11.1 FL (6.5-10.1) H Neutrophils (%) (Auto) 58.0 % (45.0-75.0) Lymphocytes (%) (Auto) 28.6 % (20.0-45.0) Monocytes (%) (Auto) 8.2 % (1.0-10.0) Eosinophils (%) (Auto) 4.2 % (0.0-3.0) H Basophils (%) (Auto) 0.9 % (0.0-2.0) Activated Partial Thromboplast Time 25 SEC (23-33) Sodium Level 141 MMOL/L (136-145) Potassium Level 3.8 MMOL/L (3.5-5.1) Chloride Level 106 MMOL/L (98-107) Carbon Dioxide Level 30 MMOL/L (21-32) Anion Gap 5 mmol/L (5-15) Blood Urea Nitrogen 12 mg/dL (7-18) Creatinine 1.1 MG/DL (0.55-1.30) Estimat Glomerular Filtration Rate mL/min (>60) Glucose Level 185 MG/DL (74-106) H Calcium Level 9.0 MG/DL (8.5-10.1) Total Bilirubin 0.5 MG/DL (0.2-1.0) Aspartate Amino Transf (AST/SGOT) 27 U/L (15-37) Alanine Aminotransferase (ALT/SGPT) 24 U/L (12-78) Alkaline Phosphatase 63 U/L (46-116) Total Protein 7.5 G/DL (6.4-8.2) Albumin 3.4 G/DL (3.4-5.0) Globulin 4.1 g/dL Albumin/Globulin Ratio 0.8 (1.0-2.7) L Amylase Level 47 U/L (25-115) Lipase 75 U/L (73-393) Elan Vogel MD August 26, 2017 18:17
--- NOTE | 2017-08-26 18:17 | General Progress Note ---
Assessment/Plan Assessment/Plan Assessment - Diverticulitis - improving Recommendations - po diet as tolerated - follow exam - abx - outpatient colonoscopy Subjective Allergies: Coded Allergies: No Known Allergies (Unverified , 08/24/17) Subjective above noted feels OK no abdominal pain Objective Last 24 Hour Vital Signs Date Time Temp Pulse Resp B/P (MAP) Pulse Ox O2 Delivery O2 Flow Rate FiO2 08/26/17 16:00 Room Air 08/26/17 15:32 98.1 81 20 137/80 97 98.1 08/26/17 12:00 Room Air 08/26/17 11:43 97.5 82 20 146/74 98 97.5 08/26/17 08:11 Room Air 08/26/17 08:11 98.1 88 20 142/72 96 98.1 08/26/17 04:00 97.9 75 21 142/77 96 97.9 08/26/17 00:16 98.2 77 19 140/72 98 98.2 Intake and Output 08/25/17 08/26/17 19:00 07:00 Intake Total 1555 ml 1380 ml Output Total 1600 ml 950 ml Balance -45 ml 430 ml Intake Oral 1130 ml 480 ml IV Total 425 ml 900 ml Output Urine Total 1600 ml 950 ml Laboratory Tests 08/26/17 05:45: White Blood Count 4.8#, Red Blood Count 3.82L, Hemoglobin 11.0L, Hematocrit 33.2L, Mean Corpuscular Volume 87, Mean Corpuscular Hemoglobin 28.7, Mean Corpuscular Hemoglobin Concent 33.1, Red Cell Distribution Width 12.9, Platelet Count 124L, Mean Platelet Volume 11.1H, Neutrophils (%) (Auto) 58.0, Lymphocytes (%) (Auto) 28.6, Monocytes (%) (Auto) 8.2, Eosinophils (%) (Auto) 4.2H, Basophils (%) (Auto) 0.9, Activated Partial Thromboplast Time 25, Sodium Level 141, Potassium Level 3.8, Chloride Level 106, Carbon Dioxide Level 30, Anion Gap 5, Blood Urea Nitrogen 12, Creatinine 1.1, Estimat Glomerular Filtration Rate , Glucose Level 185H, Calcium Level 9.0, Total Bilirubin 0.5, Aspartate Amino Transf (AST/SGOT) 27, Alanine Aminotransferase (ALT/SGPT) 24, Alkaline Phosphatase 63, Total Protein 7.5, Albumin 3.4, Globulin 4.1, Albumin/ Globulin Ratio 0.8L, Amylase Level 47, Lipase 75 Height (Feet): 5 Height (Inches): 2.00 Weight (Pounds): 145 Objective WDWN NCAT supple CTA RRR Soft NT ND no edema nonfocal Keisha Blanchard MD August 26, 2017 18:17
[2017-08-26 20:09] VITALS: BP 149/78
[2017-08-26] MEDS ORDERED: Miralax 17gm pkt ORAL PRN (21:00)
--- NOTE | 2017-08-26 22:13 | Pulmonology Progress Note ---
Subjective Allergies: Coded Allergies: No Known Allergies (Unverified , 08/24/17) Objective Last 24 Hour Vital Signs Date Time Temp Pulse Resp B/P (MAP) Pulse Ox O2 Delivery O2 Flow Rate FiO2 08/26/17 20:09 98.2 82 19 149/78 95 98.2 08/26/17 16:00 Room Air 08/26/17 15:32 98.1 81 20 137/80 97 98.1 08/26/17 12:00 Room Air 08/26/17 11:43 97.5 82 20 146/74 98 97.5 08/26/17 08:11 Room Air 08/26/17 08:11 98.1 88 20 142/72 96 98.1 08/26/17 04:00 97.9 75 21 142/77 96 97.9 08/26/17 00:16 98.2 77 19 140/72 98 98.2 Intake and Output 08/25/17 08/26/17 19:00 07:00 Intake Total 1555 ml 1380 ml Output Total 1600 ml 950 ml Balance -45 ml 430 ml Intake Oral 1130 ml 480 ml IV Total 425 ml 900 ml Output Urine Total 1600 ml 950 ml Laboratory Tests 08/26/17 05:45: White Blood Count 4.8#, Red Blood Count 3.82L, Hemoglobin 11.0L, Hematocrit 33.2L, Mean Corpuscular Volume 87, Mean Corpuscular Hemoglobin 28.7, Mean Corpuscular Hemoglobin Concent 33.1, Red Cell Distribution Width 12.9, Platelet Count 124L, Mean Platelet Volume 11.1H, Neutrophils (%) (Auto) 58.0, Lymphocytes (%) (Auto) 28.6, Monocytes (%) (Auto) 8.2, Eosinophils (%) (Auto) 4.2H, Basophils (%) (Auto) 0.9, Activated Partial Thromboplast Time 25, Sodium Level 141, Potassium Level 3.8, Chloride Level 106, Carbon Dioxide Level 30, Anion Gap 5, Blood Urea Nitrogen 12, Creatinine 1.1, Estimat Glomerular Filtration Rate , Glucose Level 185H, Calcium Level 9.0, Total Bilirubin 0.5, Aspartate Amino Transf (AST/SGOT) 27, Alanine Aminotransferase (ALT/SGPT) 24, Alkaline Phosphatase 63, Total Protein 7.5, Albumin 3.4, Globulin 4.1, Albumin/ Globulin Ratio 0.8L, Amylase Level 47, Lipase 75 Current Medications Medications (Trade) Dose Ordered Sig/Parth Route PRN Reason Start Time Stop Time Status Last Admin Dose Admin Acetaminophen (Tylenol) 650 mg Q4H PRN ORAL fever 08/26/17 11:00 09/25/17 10:59 Al Hydroxide/Mg Hydroxide (Mylanta II) 30 ml Q6H PRN ORAL dyspepsia 08/26/17 11:00 09/25/17 10:59 Ceftriaxone Sodium 1 gm/ Dextrose 55 ml @ 110 mls/hr Q24H IVPB 08/26/17 10:00 09/02/17 09:59 08/26/17 09:13 Dextrose (Dextrose 50%) STAT PRN IV Hypoglycemia 08/26/17 11:00 09/25/17 10:59 Dextrose (Dextrose 50%) STAT PRN IV Hypoglycemia 08/26/17 11:00 09/25/17 10:59 Dextrose/Sodium Chloride 1,000 ml @ 75 mls/hr [id number] IV 08/25/17 09:00 09/24/17 08:59 08/26/17 12:15 Diphenhydramine HCl (Benadryl) 25 mg Q6H PRN ORAL Itching/Pruritis 08/26/17 11:15 09/25/17 11:14 Lorazepam (Ativan 2mg/ml 1ml) 1 mg Q4H PRN IV agitation 08/26/17 11:15 09/02/17 11:14 Metoclopramide HCl (Reglan) 10 mg Q6H PRN IVP servere nausea 08/26/17 11:15 09/25/17 11:14 Metronidazole (Flagyl) 500 mg Q8HR ORAL 08/26/17 15:00 09/01/17 14:59 08/26/17 15:10 Morphine Sulfate (Morphine Sulfate) 4 mg Q4H PRN IVP For Pain 08/26/17 11:15 09/02/17 11:14 Nitroglycerin (Ntg) 0.4 mg Q5M X 3 DOSES PRN SL Prn Chest Pain 08/26/17 11:15 09/25/17 11:14 Ondansetron HCl (Zofran) 4 mg Q6H PRN IVP Nausea & Vomiting 08/26/17 11:15 09/25/17 11:14 Pantoprazole (Protonix) 40 mg DAILY IV 08/27/17 09:00 09/26/17 08:59 Polyethylene Glycol (Miralax) 17 gm HSPRN PRN ORAL Constipation 08/26/17 21:00 09/25/17 20:59 Promethazine HCl 25 mg/Sodium Chloride 56 ml @ 110 mls/hr Q6H PRN IV Refractory N/V 08/26/17 11:15 09/25/17 11:14 Temazepam (Restoril) 15 mg HSPRN PRN ORAL Insomnia 08/26/17 21:00 09/02/17 20:59 Westley Gottlieb MD August 26, 2017 22:13
[2017-08-27] VITALS: BP 125/72
--- NOTE | 2017-08-27 00:45 | Consultation ---
DATE OF CONSULTATION: 08/25/2017 HEMATOLOGY/ONCOLOGY CONSULTATION CONSULTING PHYSICIAN: Franki Appiah M.D. REQUESTING PHYSICIAN: Artem Leavitt D.O. IDENTIFYING DATA: The patient is a pleasant 77-year-old male with past medical history, which is significant for hypertension, diabetes mellitus, lives at home, at this time presents with abdominal pain, diagnosed with diverticulitis on CT scan. He has been seen by GI team. He is on antibiotics as per ID Service. Dr. Duke has seen the patient. The patient with cholelithiasis. CT scan again showed diverticulitis. The patient noted to be thrombocytopenic as well as with anemia. Hematology Service consulted for further evaluation and treatment. He has been seen by GI Service as well. Outpatient colonoscopy is pending. PAST MEDICAL HISTORY: Hypertension and diabetes. PAST SURGICAL HISTORY: None reported. MEDICATIONS: Restoril, MiraLax, Cipro, Tylenol, Zofran, Benadryl, nitroglycerin, and Mylanta. ALLERGIES: Denies. SOCIAL HISTORY: No alcohol, tobacco, or illicit drug use. FAMILY HISTORY: Noncontributory. REVIEW OF SYSTEMS: CONSTITUTIONAL: No fever, chills, or night sweats. SKIN: No rashes, bumps, or itching. HEENT: No headache, hearing or vision changes. BREASTS: No lumps, pain, or discharge. PULMONARY: No cough, sputum, or shortness of breath. GASTROINTESTINAL: No nausea, vomiting, or diarrhea. GENITOURINARY: No dysuria, frequency, or urgency. MUSCULOSKELETAL: No joint swelling, muscle pain, or trauma. PHYSICAL EXAMINATION: VITAL SIGNS: Reviewed. GENERAL: No acute distress. PULMONARY: Decreased breath sounds. CARDIOVASCULAR: Regular rate. No S3 or S4. ABDOMEN: Soft, nontender, and nondistended. EXTREMITIES: No cyanosis, swelling, or edema noted. LABORATORY AND DIAGNOSTIC DATA: BUN of 12 and creatinine of 1.1. Hemoglobin 11, WBC 4.8, and platelet count 224,000. Serology, hepatitis panel negative. HIV negative. Imaging reviewed. Ultrasound of the abdomen reviewed, which shows bilateral renal cysts and cholelithiasis. ASSESSMENT AND RECOMMENDATIONS: 1. Thrombocytopenia, potentially secondary to reactive process. Medications have been reviewed. This is the first time he has been noted to have thrombocytopenia. Reviewed the patient's labs from before. This is his first admission. Hepatitis panel and HIV negative as well. Ultrasound of the abdomen is pending. 2. Anemia due to underlying chronic disease. Continue to closely monitor. Potentially hemodilution related as well. 3. Hypertension, systolic blood pressure goal is 140. 4. Leukocytosis, likely secondary to reactive process. 5. Diverticulitis. 6. Diabetes mellitus. A1c goal is above 7. 7. I appreciate the consultation. Franki Appiah M.D. DR: LYNN JOB#: [id number] CC: Artem Leavitt D.O.
--- NOTE | 2017-08-27 01:30 | Consultation ---
DATE OF CONSULTATION: 08/26/2017 CARDIOLOGY CONSULTATION REFERRING PHYSICIAN: Artem Leavitt D.O. REASON FOR CONSULTATION: Management of accelerated hypertension in the patient with dual chamber pacemaker. HISTORY OF PRESENT ILLNESS: The patient is a very unfortunate 77-year-old gentleman, who presents to the hospital with complaints of diffuse abdominal pain, which started on 08/25/2017 associated with nausea and vomiting. On arrival to the emergency department, initial blood pressure was 165/83 mmHg and pulse rate of 98. Cardiology consultation was made at the request of Dr. Leavitt for evaluation and management of accelerated hypertension as well as management of dual-chamber pacemaker. Initial 12-lead electrocardiogram in the emergency department shows sinus rhythm at a rate of 88. PAST MEDICAL HISTORY: Include history of hypertension, history of diabetes mellitus, and history of dual-chamber pacemaker implantation. MEDICATIONS: List of medications include ferrous sulfate 325 mg one tablet daily, folic acid 1 mg p.o. daily, hydrochlorothiazide 12.5 mg p.o. daily, lansoprazole 30 mg p.o. daily, magnesium sulfate 400 mg p.o. daily, metformin 1000 mg twice daily, Nitrostat 0.4 mg sublingual q.5 minutes x3 dose p.r.n. chest pain, pentoxifylline 400 mg p.o. t.i.d., simvastatin 20 mg p.o. nightly, and Januvia 100 mg p.o. daily. ALLERGIES: No known drug allergies. FAMILY HISTORY: No premature coronary disease in first-degree relative. REVIEW OF SYSTEMS: A 12-system review done essentially negative except what mentioned in the history of present illness. PHYSICAL EXAMINATION: VITAL SIGNS: Blood pressure is 165/83, respirations of 16, pulse of 98, temperature 97.6 degrees Fahrenheit, and O2 saturation 95% on room air. GENERAL: The patient is a very unfortunate, 77-year-old gentleman, in no apparent respiratory distress. Alert and oriented x4. HEENT: Atraumatic and normocephalic. Anicteric. Pupils are equal, round, and reactive to light and accommodation. Extraocular muscles intact. NECK: JVP less than 5 cm. No carotid bruit. Carotid upstrokes 2+ bilaterally. CARDIOVASCULAR: Normal S1 and S2. Regular rate and rhythm. No murmurs, gallops, or rubs. PMI is at fourth intercostal space in the midclavicular line. LUNGS: Clear to auscultation bilaterally. ABDOMEN: Soft, nontender, and nondistended. No hepatosplenomegaly. Positive bowel sounds. EXTREMITIES: No evidence of edema, clubbing, or cyanosis. LABORATORY FINDINGS: WBC 11.5, hemoglobin 11.5, hematocrit 34.4, and platelet count is 84,000. Sodium is 139, potassium is 3.8, chloride 100, bicarbonate is 27, BUN of 20, creatinine 1.1, glucose 195, and calcium is 9.8. CK-MB was 1.1. Troponin I was 0.0. PTT was 25. Chest x-ray showed dual chamber pacemaker. The patient otherwise no acute cardiopulmonary disease. ASSESSMENT AND PLAN: The patient is a very unfortunate 77-year-old gentleman, seen in Cardiology consultation at the request of Dr. Leavitt. 1. Accelerated hypertension. I would like to continue the patient on a low-dose diuretic. 2. Serum sodium appears to be within normal limits. 3. The goal of blood pressure in this patient in phase of diabetes mellitus is less than 130/80 mmHg. 4. Diabetes mellitus. The patient requires combination of aspirin and statin. 5. moderate in intensity or atorvastatin 40 mg nightly. 6. Dual-chamber pacemaker implantation. Currently, QRS complexes. I would like to thank, Dr. Leavitt for allowing me to participate in the care of this patient. Elan Vogel M.D. DR: Alvino JOB#: [id number] CC:
[2017-08-27] MEDS: D5 1/2NS 1,000 ML IV SCH ×2 (01:54→14:20)
[2017-08-27 04:40] VITALS: BP 139/77
--- NOTE | 2017-08-27 04:59 | General Progress Note ---
Assessment/Plan Assessment/Plan ASSESSMENT AND RECOMMENDATIONS: 1. Thrombocytopenia, potentially secondary to reactive process. Medications have been reviewed. This is the first time he has been noted to have thrombocytopenia. Reviewed the patient's labs from before. This is his first admission. --> Hepatitis panel and HIV negative as well. --> Medications have been reviewed --> Ultrasound of the abdomen is unremarkable --> elevated protein but less likely multiple myeloma --> transfuse if plt less than 20k 2. Anemia due to underlying chronic disease. Continue to closely monitor. Potentially hemodilution related as well. --> workup if hgb <7 3. Hypertension, systolic blood pressure goal is 140. 4. Leukocytosis, likely secondary to reactive process. 5. Diverticulitis. 6. Diabetes mellitus. A1c goal is above 7. Subjective Date patient seen: August 26, 2017 Constitutional: Denies: no symptoms, chills, diaphoresis, fever, malaise, weakness, other HEENT: Denies: no symptoms, eye pain, blurred vision, tearing, double vision, ear pain, ear discharge, nose pain, nose congestion, throat pain, throat swelling, mouth pain, mouth swelling, other Cardiovascular: Denies: no symptoms, chest pain, edema, irregular heart rate, lightheadedness, palpitations, syncope, other Respiratory: Denies: no symptoms, cough, orthopnea, shortness of breath, SOB with excertion, SOB at rest, sputum, stridor, wheezing, other Gastrointestinal/Abdominal: Denies: no symptoms, abdomen distended, abdominal pain, black stools, tarry stools, blood in stool, constipated, diarrhea, difficulty swallowing, nausea, poor appetite, poor fluid intake, rectal bleeding , vomiting, other Genitourinary: Denies: no symptoms, burning, discharge, frequency, flank pain, hematuria, incontinence, pain, urgency, other Neurologic/Psychiatric: Denies: no symptoms, anxiety, depressed, emotional problems, headache, numbness, paresthesia, pre-existing deficit, seizure, tingling, tremors, weakness, other Endocrine: Denies: no symptoms, excessive sweating, flushing, intolerance to cold, intolerance to heat, increased hunger, increased thirst, increased urine, unexplained weight gain, unexplained weight loss, other Hematologic/Lymphatic: Denies: no symptoms, anemia, easy bleeding, easy bruising, other Allergies: Coded Allergies: No Known Allergies (Unverified , 08/24/17) Subjective no events overnight, plt trending up Objective Last 24 Hour Vital Signs Date Time Temp Pulse Resp B/P (MAP) Pulse Ox O2 Delivery O2 Flow Rate FiO2 08/27/17 04:40 97.5 78 18 139/77 97 97.5 08/27/17 00:00 97.5 83 18 125/72 97 97.5 08/27/17 00:00 Room Air 08/26/17 20:09 98.2 82 19 149/78 95 98.2 08/26/17 20:00 Room Air 08/26/17 16:00 Room Air 08/26/17 15:32 98.1 81 20 137/80 97 98.1 08/26/17 12:00 Room Air 08/26/17 11:43 97.5 82 20 146/74 98 97.5 08/26/17 08:11 Room Air 08/26/17 08:11 98.1 88 20 142/72 96 98.1 Intake and Output 08/26/17 08/27/17 19:00 07:00 Intake Total 1695 ml 915 ml Output Total 1000 ml 800 ml Balance 695 ml 115 ml Intake Oral 890 ml 240 ml IV Total 805 ml 675 ml Output Urine Total 1000 ml 800 ml # Bowel Movements 1 Laboratory Tests 08/26/17 05:45: White Blood Count 4.8#, Red Blood Count 3.82L, Hemoglobin 11.0L, Hematocrit 33.2L, Mean Corpuscular Volume 87, Mean Corpuscular Hemoglobin 28.7, Mean Corpuscular Hemoglobin Concent 33.1, Red Cell Distribution Width 12.9, Platelet Count 124L, Mean Platelet Volume 11.1H, Neutrophils (%) (Auto) 58.0, Lymphocytes (%) (Auto) 28.6, Monocytes (%) (Auto) 8.2, Eosinophils (%) (Auto) 4.2H, Basophils (%) (Auto) 0.9, Activated Partial Thromboplast Time 25, Sodium Level 141, Potassium Level 3.8, Chloride Level 106, Carbon Dioxide Level 30, Anion Gap 5, Blood Urea Nitrogen 12, Creatinine 1.1, Estimat Glomerular Filtration Rate , Glucose Level 185H, Calcium Level 9.0, Total Bilirubin 0.5, Aspartate Amino Transf (AST/SGOT) 27, Alanine Aminotransferase (ALT/SGPT) 24, Alkaline Phosphatase 63, Total Protein 7.5, Albumin 3.4, Globulin 4.1, Albumin/ Globulin Ratio 0.8L, Amylase Level 47, Lipase 75 Height (Feet): 5 Height (Inches): 2.00 Weight (Pounds): 145 General Appearance: no apparent distress EENT: normal ENT inspection Neck: supple Cardiovascular: regular rhythm Respiratory/Chest: no respiratory distress Abdomen: non tender Extremities: non-tender Edema: 1+ Leg (L), 1+ Leg (R) Neurologic: alert Skin: warm/dry Franki Appiah MD August 27, 2017 04:59
[2017-08-27] MEDS: metroNIDAZOLE 500mg tab ORAL SCH ×2 (06:14→14:11)
[2017-08-27 07:55] LABS: BASOPHILS % (AUTO) 0.8 % (0.0-2.0); EOSINOPHILS % (AUTO) 5.2 % (0.0-3.0); HEMATOCRIT 33.7 % (42.0-52.0); HEMOGLOBIN 11.2 G/DL (14.2-18.0); LYMPHOCYTES % (AUTO) 22.5 % (20.0-45.0); MEAN CORPUSCULAR VOLUME 86 FL (80-99); MONOCYTES % (AUTO) 7.6 % (1.0-10.0); NEUTROPHILS % (AUTO) 63.9 % (45.0-75.0); PLATELET COUNT 124 K/UL (150-450); RED BLOOD COUNT 3.89 M/UL (4.70-6.10); RED CELL DISTRIBUTION WIDTH 12.8 % (11.6-14.8); WHITE BLOOD COUNT 6.2 K/UL (4.8-10.8)
[2017-08-27 08:00] VITALS: BP 140/77
[2017-08-27 08:23] LABS: ANION GAP 10 mmol/L (5-15); BLOOD UREA NITROGEN 11 mg/dL (7-18); CALCIUM 9.2 MG/DL (8.5-10.1); CARBON DIOXIDE 26 MMOL/L (21-32); CHLORIDE 105 MMOL/L (98-107); CREATININE 1.1 MG/DL (0.55-1.30); POTASSIUM 3.7 MMOL/L (3.5-5.1); SODIUM 141 MMOL/L (136-145)
--- NOTE | 2017-08-27 08:43 | General Progress Note ---
Assessment/Plan Problem List: (1) HTN (hypertension) ICD Codes: I10 - Essential (primary) hypertension SNOMED: 39763540 (2) Diabetes ICD Codes: E11.9 - Type 2 diabetes mellitus without complications SNOMED: 31013847 (3) Anemia ICD Codes: D64.9 - Anemia, unspecified SNOMED: 444209690 (4) Thrombocytopenia ICD Codes: D69.6 - Thrombocytopenia, unspecified SNOMED: 294870850 (5) Diverticulitis ICD Codes: K57.92 - Diverticulitis of intestine, part unspecified, without perforation or abscess without bleeding SNOMED: 431332023 (6) Abdominal pain ICD Codes: R10.9 - Unspecified abdominal pain SNOMED: 98688745 Status: stable, progressing, tolerating diet Assessment/Plan sbx per id, gi f/u pain control dc if clear Subjective Constitutional: Reports: weakness Allergies: Coded Allergies: No Known Allergies (Unverified , 08/24/17) All Systems: reviewed and negative except above Subjective eating ok calm Objective Last 24 Hour Vital Signs Date Time Temp Pulse Resp B/P (MAP) Pulse Ox O2 Delivery O2 Flow Rate FiO2 08/27/17 08:00 97.5 88 20 140/77 96 97.5 08/27/17 04:40 97.5 78 18 139/77 97 97.5 08/27/17 00:00 97.5 83 18 125/72 97 97.5 08/27/17 00:00 Room Air 08/26/17 20:09 98.2 82 19 149/78 95 98.2 08/26/17 20:00 Room Air 08/26/17 16:00 Room Air 08/26/17 15:32 98.1 81 20 137/80 97 98.1 08/26/17 12:00 Room Air 08/26/17 11:43 97.5 82 20 146/74 98 97.5 Intake and Output 08/26/17 08/27/17 19:00 07:00 Intake Total 1695 ml 1140 ml Output Total 1000 ml 1600 ml Balance 695 ml -460 ml Intake Oral 890 ml 240 ml IV Total 805 ml 900 ml Output Urine Total 1000 ml 1600 ml # Bowel Movements 1 Laboratory Tests 08/27/17 05:40: White Blood Count 6.2, Red Blood Count 3.89L, Hemoglobin 11.2L, Hematocrit 33.7L , Mean Corpuscular Volume 86, Mean Corpuscular Hemoglobin 28.7, Mean Corpuscular Hemoglobin Concent 33.2, Red Cell Distribution Width 12.8, Platelet Count 124L, Mean Platelet Volume 10.2H, Neutrophils (%) (Auto) 63.9, Lymphocytes (%) (Auto) 22.5, Monocytes (%) (Auto) 7.6, Eosinophils (%) (Auto) 5.2H, Basophils (%) (Auto) 0.8, Sodium Level 141, Potassium Level 3.7, Chloride Level 105, Carbon Dioxide Level 26, Anion Gap 10, Blood Urea Nitrogen 11, Creatinine 1.1, Estimat Glomerular Filtration Rate , Glucose Level 186H, Calcium Level 9.2 Height (Feet): 5 Height (Inches): 2.00 Weight (Pounds): 145 General Appearance: alert EENT: normal ENT inspection Neck: normal alignment Cardiovascular: normal peripheral pulses, normal rate, regular rhythm Respiratory/Chest: chest wall non-tender, lungs clear, normal breath sounds Abdomen: normal bowel sounds, non tender, soft Extremities: normal inspection Edema: no edema noted Arm (L), no edema noted Arm (R), no edema noted Leg (L), no edema noted Leg (R), no edema noted Pedal (L), no edema noted Pedal (R), no edema noted Generalized Neurologic: responsive, motor weakness Skin: normal pigmentation, warm/dry Artem LeavittMagdalena DO August 27, 2017 08:43
[2017-08-27] MEDS ORDERED: Pantoprazole Inj IV SCH (09:00)
[2017-08-27] MEDS: cefTRIAXone 1 GM in D5W 55 ML IVPB SCH (09:07)
[2017-08-27] MEDS ORDERED: METRONIDAZOLE500 MG ORAL (11:35)
[2017-08-27] MEDS ORDERED: MIRALAX17 G2 ORAL (11:36)
[2017-08-27] MEDS ORDERED: PROTONIX20 MG ORAL (11:36)
[2017-08-27] MEDS ORDERED: nitroglycerin SL (11:37)
[2017-08-27] MEDS ORDERED: ZOFRAN4 M3 ORAL (11:37)
[2017-08-27] MEDS ORDERED: MYLANTA30 M1 PO (11:38)
[2017-08-27] MEDS ORDERED: ACETAMINOPHEN325 M1 ORAL (11:38)
[2017-08-27 12:00] VITALS: BP 152/85
--- NOTE | 2017-08-27 14:04 | General Progress Note ---
Assessment/Plan Assessment/Plan ASSESSMENT AND RECOMMENDATIONS: 1. Thrombocytopenia, potentially secondary to reactive process. Medications have been reviewed. This is the first time he has been noted to have thrombocytopenia. Reviewed the patient's labs from before. This is his first admission. --> Hepatitis panel and HIV negative as well. --> Medications have been reviewed --> Ultrasound of the abdomen is unremarkable --> elevated protein but less likely multiple myeloma --> outpatient bone marrow biopsy if pt count downtrends to plt <50k --> transfuse if plt less than 20k 2. Anemia due to underlying chronic disease. Continue to closely monitor. Potentially hemodilution related as well. --> workup if hgb <7 3. Hypertension, systolic blood pressure goal is 140. 4. Leukocytosis, likely secondary to reactive process. 5. Diverticulitis. 6. Diabetes mellitus. A1c goal is above 7. Subjective HEENT: Denies: no symptoms, eye pain, blurred vision, tearing, double vision, ear pain, ear discharge, nose pain, nose congestion, throat pain, throat swelling, mouth pain, mouth swelling, other Cardiovascular: Denies: no symptoms, chest pain, edema, irregular heart rate, lightheadedness, palpitations, syncope, other Respiratory: Denies: no symptoms, cough, orthopnea, shortness of breath, SOB with excertion, SOB at rest, sputum, stridor, wheezing, other Gastrointestinal/Abdominal: Denies: no symptoms, abdomen distended, abdominal pain, black stools, tarry stools, blood in stool, constipated, diarrhea, difficulty swallowing, nausea, poor appetite, poor fluid intake, rectal bleeding , vomiting, other Genitourinary: Denies: no symptoms, burning, discharge, frequency, flank pain, hematuria, incontinence, pain, urgency, other Neurologic/Psychiatric: Denies: no symptoms, anxiety, depressed, emotional problems, headache, numbness, paresthesia, pre-existing deficit, seizure, tingling, tremors, weakness, other Endocrine: Denies: no symptoms, excessive sweating, flushing, intolerance to cold, intolerance to heat, increased hunger, increased thirst, increased urine, unexplained weight gain, unexplained weight loss, other Hematologic/Lymphatic: Denies: no symptoms, anemia, easy bleeding, easy bruising, other Allergies: Coded Allergies: No Known Allergies (Unverified , 08/24/17) Subjective no events overnight, plt trending up Objective Last 24 Hour Vital Signs Date Time Temp Pulse Resp B/P (MAP) Pulse Ox O2 Delivery O2 Flow Rate FiO2 08/27/17 12:00 97.6 84 18 152/85 97 97.6 08/27/17 08:00 97.5 88 20 140/77 96 97.5 08/27/17 04:40 97.5 78 18 139/77 97 97.5 08/27/17 00:00 97.5 83 18 125/72 97 97.5 08/27/17 00:00 Room Air 08/26/17 20:09 98.2 82 19 149/78 95 98.2 08/26/17 20:00 Room Air 08/26/17 16:00 Room Air 08/26/17 15:32 98.1 81 20 137/80 97 98.1 Intake and Output 08/26/17 08/27/17 19:00 07:00 Intake Total 1695 ml 1140 ml Output Total 1000 ml 1600 ml Balance 695 ml -460 ml Intake Oral 890 ml 240 ml IV Total 805 ml 900 ml Output Urine Total 1000 ml 1600 ml # Bowel Movements 1 Laboratory Tests 08/27/17 05:40: White Blood Count 6.2, Red Blood Count 3.89L, Hemoglobin 11.2L, Hematocrit 33.7L , Mean Corpuscular Volume 86, Mean Corpuscular Hemoglobin 28.7, Mean Corpuscular Hemoglobin Concent 33.2, Red Cell Distribution Width 12.8, Platelet Count 124L, Mean Platelet Volume 10.2H, Neutrophils (%) (Auto) 63.9, Lymphocytes (%) (Auto) 22.5, Monocytes (%) (Auto) 7.6, Eosinophils (%) (Auto) 5.2H, Basophils (%) (Auto) 0.8, Sodium Level 141, Potassium Level 3.7, Chloride Level 105, Carbon Dioxide Level 26, Anion Gap 10, Blood Urea Nitrogen 11, Creatinine 1.1, Estimat Glomerular Filtration Rate , Glucose Level 186H, Calcium Level 9.2 Height (Feet): 5 Height (Inches): 2.00 Weight (Pounds): 145 General Appearance: WD/WN EENT: normal ENT inspection Neck: normal alignment Cardiovascular: normal rate Respiratory/Chest: chest wall non-tender Abdomen: soft Edema: no edema noted Leg (L), no edema noted Leg (R) Edema: mild edema Neurologic: alert Skin: warm/dry Franki Appiah MD August 27, 2017 14:04
[2017-08-27] MEDS ORDERED: D5 1/2NS 1000ml IV ONE (14:29)
--- NOTE | 2017-08-27 15:21 | General Progress Note ---
Assessment/Plan Assessment/Plan Assessment - Diverticulitis - improving Recommendations - po diet as tolerated - follow exam - abx - outpatient colonoscopy Subjective Allergies: Coded Allergies: No Known Allergies (Unverified , 08/24/17) Subjective above noted feels OK no abdominal pain Objective Last 24 Hour Vital Signs Date Time Temp Pulse Resp B/P (MAP) Pulse Ox O2 Delivery O2 Flow Rate FiO2 08/27/17 12:00 97.6 84 18 152/85 97 97.6 08/27/17 08:00 97.5 88 20 140/77 96 97.5 08/27/17 04:40 97.5 78 18 139/77 97 97.5 08/27/17 00:00 97.5 83 18 125/72 97 97.5 08/27/17 00:00 Room Air 08/26/17 20:09 98.2 82 19 149/78 95 98.2 08/26/17 20:00 Room Air 08/26/17 16:00 Room Air 08/26/17 15:32 98.1 81 20 137/80 97 98.1 Intake and Output 08/26/17 08/27/17 19:00 07:00 Intake Total 1695 ml 1140 ml Output Total 1000 ml 1600 ml Balance 695 ml -460 ml Intake Oral 890 ml 240 ml IV Total 805 ml 900 ml Output Urine Total 1000 ml 1600 ml # Bowel Movements 1 Laboratory Tests 08/27/17 05:40: White Blood Count 6.2, Red Blood Count 3.89L, Hemoglobin 11.2L, Hematocrit 33.7L , Mean Corpuscular Volume 86, Mean Corpuscular Hemoglobin 28.7, Mean Corpuscular Hemoglobin Concent 33.2, Red Cell Distribution Width 12.8, Platelet Count 124L, Mean Platelet Volume 10.2H, Neutrophils (%) (Auto) 63.9, Lymphocytes (%) (Auto) 22.5, Monocytes (%) (Auto) 7.6, Eosinophils (%) (Auto) 5.2H, Basophils (%) (Auto) 0.8, Sodium Level 141, Potassium Level 3.7, Chloride Level 105, Carbon Dioxide Level 26, Anion Gap 10, Blood Urea Nitrogen 11, Creatinine 1.1, Estimat Glomerular Filtration Rate , Glucose Level 186H, Calcium Level 9.2 Height (Feet): 5 Height (Inches): 2.00 Weight (Pounds): 145 Objective WDWN NCAT supple CTA RRR Soft NT ND no edema nonfocal Keisha Blanchard MD August 27, 2017 15:21
--- NOTE | 2017-08-29 12:53 | Discharge Summary ---
Discharge Summary Hospital Course Date of Admission August 25, 2017 at 00:34 Date of Discharge August 27, 2017 at 17:00 Admitting Diagnosis ABDOMINAL PAIN HPI David Hilario is a 77 year old male who was admitted on August 25, 2017 at 00: 34 for Abdominal Pain Hospital Course dc summary #[id number] Discharge Medications Continued Medications: Acetaminophen* (Acetaminophen 325MG Tablet*) 325 Mg Tablet 325 MG ORAL Q4H PRN for Mild Pain/Temp > 100.5, TAB (This prescription has been renewed) Al Hydroxide/mg Hydroxide (Mag-Al Liquid) 30 Ml Oral.susp 30 ML PO Q6HR PRN for heartburn, ML (This prescription has been renewed) Hydrochlorothiazide* (Hydrochlorothiazide*) 12.5 Mg Capsule 12.5 MG ORAL DAILY, CAP (This prescription has been renewed) Metronidazole* (Flagyl*) 500 Mg Tablet 500 MG ORAL EVERY 8 HOURS for 7 Days, TAB (This prescription has been renewed) Nitroglycerin (Nitrostat) 0.4 Mg Tab.subl 0.4 MG SL Q5M X3 DOSES PRN for Prn Chest Pain, TAB 0 Refills (This prescription has been renewed) [nitroglycerin] () 0.4 MG SL [id number] x 3 doses PRN for chest pain (This prescription has been renewed) Ondansetron* (Zofran*) 4 Mg Tablet 4 MG ORAL Q6H PRN for Nausea & Vomiting, TAB (This prescription has been renewed ) Pantoprazole Sodium (Protonix) 20 Mg Tablet.dr 40 MG ORAL DAILY, TAB (This prescription has been renewed) Polyethylene Glycol 3350* (Miralax*) 17 Gm Powd.pack 17 GM ORAL HS PRN for Constipation, PACKET (This prescription has been renewed) Discharge Condition Upon Discharge: stable Discharge Disposition Patient was discharged to Home () Discharge Instructions Discharge Instructions Special Instructions I have been assigned to complete a D/C Summary on this account. I was not involved in the patient management Nicole Perez NP August 29, 2017 12:53
--- NOTE | 2017-08-30 00:30 | Discharge Summary 2 SIG ---
DATE OF ADMISSION: 08/25/2017 DATE OF DISCHARGE: 08/27/2017 REASON FOR ADMISSION: 77-year-old male with past medical history significant for hypertension and diabetes, presented to emergency department with a complaint of diffuse abdominal pain along with nausea and vomiting. He denied diarrhea. He denied chest pain or shortness of breath. He denied past abdominal surgeries. He denied fever and chills. He denied dysuria or urinary frequency. Upon evaluation the patient noted to have had elevated blood pressure 165/83. Pulse oximetry was stable on room air. The patient was afebrile. Mild leukocytosis with WBC 11.5, hemoglobin 11.5, hematocrit 34.4, and platelet 84,000. Urinalysis was negative for evidence of urinary tract infection. Electrolytes, renal parameters, LFT, and lipase were all within normal limits. Troponin was negative. EKG revealed sinus rhythm. No acute ischemic changes. CT of the abdomen and pelvis revealed evidence of acute diverticulitis involving the distal descending colon. No abscess. Cholelithiasis. Normal appendix. Chest x-ray revealed no acute cardiopulmonary pathology, and abdominal ultrasound revealed cholelithiasis with negative sonographic Frances sign. No biliary ductal dilatation was identified. No hydronephrosis was seen. No ascites. The patient was admitted with diagnosis of diverticulitis. CONSULTANTS: 1. Marvin Bell M.D., GI consult. 2. Westley Gottlieb M.D., Pulmonary Critical Care. 3. Kurt Duke M.D., Infectious Disease. 4. Franki Appiah M.D., Hematology. 5. Elan Vogel M.D., Cardiology. HOSPITAL COURSE: The patient was admitted. The patient was started on the IV hydration. The patient was initially kept NPO. GI specialist seen and evaluated the patient. The patient was started on empiric antibiotics. The patient received intravenous antibiotics while in the hospital, which were transitioned to oral upon discharge to complete the course as per ID recommendation. Pain management was addressed, and pain was controlled. The patient was started on clear liquid diet and was advanced as tolerated. The patient was on the low residue diet and was able to tolerate it. The patient was educated on low residue diet while recovering from diverticulitis. The patient was on PPI. The patient will need colonoscopy in two months after discharge. Enterprise Analyst closely followed. Blood pressure was managed as per yardage estimator recommendations. The patient had accelerated hypertension possibly due to pain from diverticulitis . Blood pressure improved and stabilized. The goal was to keep blood pressure below 130/80 since the patient also had diabetes. Blood pressure was managed with hydrochlorothiazide. Sodium was stable. Statin was continued. Blood sugar was managed with sliding scale of insulin. Maintenance Mechanic Supervisor closely followed the patient. The patient was noted to have thrombocytopenia. Platelet count was trending up. Prior to discharge, 124,000 from initial 84,000. According to evaporator operator molasses, thrombocytopenia was potentially secondary to reactive process. Hepatitis panel and HIV status were both negative. Medication list was reviewed. Ultrasound of the abdomen was unremarkable. Maintenance Mechanic Supervisor recommended outpatient bone marrow biopsy if platelet count will downtrend and platelet count below 50,000. However, platelet count increased to 124,000 prior to discharge. He also recommended to transfuse if platelet count below 20,000. Hemoglobin and hematocrit were closely monitored and remained at the baseline. Anemia workup was consistent with anemia of chronic disease. No need for transfusion with goal to keep hemoglobin above 7. The patient was stable for discharge home. FINAL DIAGNOSES: 1. Acute diverticulitis. 2. Abdominal pain secondary to diverticulitis. 3. Cholelithiasis. 4. Accelerated hypertension. 5. Hyperlipidemia. 6. Diabetes mellitus. 7. Dual-chamber pacemaker. 8. Thrombocytopenia. 9. Anemia of chronic disease. DISCHARGE MEDICATIONS: See medication reconciliation list. DISCHARGE INSTRUCTIONS: The patient was discharged home. Follow up with the primary care provider next week. Artem Leavitt D.O. I have been assigned to dictate discharge summary on this account and I was not involved in the patient's management. Nicole Perez (Vanchtein) N.P. DR: GAVINO JOB#: [id number] CC: JULIA
== END 2017-08-27 17:00 | disposition home or self-care (01) | DRG 392 ==
LOC: EMR 23:59 → 4W 08-25 00:34 → EDBEDREQ 08-25 00:55
DX: K57.92 Diverticulitis of intestine, part unspecified, without perforation or abscess without bleeding (principal); K80.20 Calculus of gallbladder without cholecystitis without obstruction; M47.896 Other spondylosis, lumbar region; M43.17 Spondylolisthesis, lumbosacral region; I10 Essential (primary) hypertension; E11.9 Type 2 diabetes mellitus without complications; D69.6 Thrombocytopenia, unspecified; D63.8 Anemia in other chronic diseases classified elsewhere; Z95.0 Presence of cardiac pacemaker; E78.5 Hyperlipidemia, unspecified
CPT/HCPCS: 36415; 71045; 74176; 76700; 80048; 80053; 81003; 82150; 82550; 82553; 82607; 82728; 82746; 82962; 83010; 83090; 83540; 83550; 83615; 83690; 84484; 85025; 85044; 85384; 85730; 86703; 86705; 86709; 86803; 87340; 93005; 99285